=== PATIENT | female | born 1965 | race Hispanic/Latino ===

== ENCOUNTER 2019-02-14 13:56 | Inpatient (IN) | payer MEDICARE, OTHER ==
[2019-02-14] MEDS ORDERED: NACL 0.9% 1000 ML 1,000 ML IV ONE ×2 (14:02→16:14)
[2019-02-14] MEDS ORDERED: ZOFRAN IV ONE ×2 (14:02→16:36)
[2019-02-14] MEDS ORDERED: MORPHINE IV ONE ×2 (14:02→16:14)
--- NOTE | 2019-02-14 14:04 | Emergency Department Report ---
Blank Doc - Documentation Documentation: 53-year-old female that presents with abdominal pain and n/v. This initial assessment/diagnostic orders/clinical plan/treatment(s) is/are subject to change based on patient's health status, clinical progression and re- assessment by fellow clinical providers in the ED. Further treatment and workup at subsequent clinical providers discretion. Patient/guardians urged not to elope from the ED as their condition may be serious if not clinically assessed and managed. Initial orders include: 1- Patient sent to [facility] for further evaluation and treatment 2- labs 3- UA 4- fluids/treatment 5- CT abd/plevis
--- NOTE | 2019-02-14 15:00 | Emergency Department Report ---
HPI <JAZMÍN NOVOA - Last Filed: 02/15/19 01:58> - HPI HPI: 53-year-old female presents to the emergency department with complaint of some abdominal cramping pain, nausea, vomiting and shaking for the past 3-4 days. She has not taken anything for her symptoms secondary to the nausea and vomiting. She has a past medical history of arthritis, diabetes. She has a previous history of appendectomy and cholecystectomy. She went to return here yesterday and was told to come to the emergency department if she did not improve. No recent travel or sick contacts at home. <ALEX CENTENO - Last Filed: 02/15/19 22:00> - General Chief Complaint: Abdominal Pain Time Seen by Provider: 02/14/19 14:01 ED Past Medical Hx <JAZMÍN NOVOA - Last Filed: 02/15/19 01:58> - Past Medical History Previous Medical History?: Yes Hx Hypertension: Yes Hx Congestive Heart Failure: No Hx Diabetes: Yes (2YRS) Hx GERD: Yes Hx Arthritis: Yes Hx Headaches / Migraines: Yes Hx Asthma: No Hx COPD: No Hx HIV: No - Surgical History Hx Cholecystectomy: Yes Hx Appendectomy: Yes Additional Surgical History: back surg, bilat knee surg, hysterectomy, exp. lap - Social History Smoking Status: Current Every Day Smoker <ALEX CENTENO - Last Filed: 02/15/19 22:00> - Medications Home Medications: Home Medications Medication Instructions Recorded Confirmed Last Taken Type ALPRAZolam [Xanax TAB] 2 mg PO QID 01/15/13 02/14/19 02/13/19 History Aspirin [Aspirin BABY CHEW TAB] 81 mg PO QDAY 01/15/13 02/14/19 02/13/19 History Baclofen 10 mg PO QID 01/15/13 02/14/19 02/13/19 History Citalopram Hydrobromide [celeXA] 40 mg PO DAILY 01/15/13 02/14/19 02/13/19 History Dexlansoprazole [Dexilant] 60 mg PO QDAY 01/15/13 02/14/19 02/13/19 History Furosemide [Lasix TAB] 40 mg PO BID 01/15/13 02/14/19 02/13/19 History Trazodone HCl [Trazodone] 150 mg PO QHS 01/15/13 02/14/19 02/13/19 History busPIRone [Buspar] 15 mg PO TID 01/15/13 02/14/19 02/13/19 History Glimepiride 2 mg PO BID 09/20/13 02/14/19 02/13/19 History Multivitamin [Multi-Vitamin Daily] 1 tab PO DAILY 09/20/13 02/14/19 02/13/19 History Potassium Chloride 20 meq PO BID 09/20/13 02/14/19 02/13/19 History Sennosides/Docusate Sodium [Stool 2 cap PO BID 09/20/13 02/14/19 02/13/19 History Softener-Stim Lax Tablet] Cyanocobalamin (Vitamin B-12) 500 mcg SL QDAY 01/21/15 02/14/19 02/13/19 History [Vitamin B-12] Loratadine [Claritin] 10 mg PO BID 01/21/15 02/14/19 02/13/19 History Lovastatin [Altoprev] 40 mg PO QDAY 01/21/15 02/14/19 02/13/19 History Meloxicam [Mobic] 15 mg PO QDAY 01/21/15 02/14/19 02/13/19 History Oxycodone HCl/Acetaminophen 1 each PO TID PRN 01/21/15 02/14/19 02/13/19 History [Endocet 2.5-325 mg Tablet] fentaNYL [Fentanyl] 1 each TD Q72HR 01/21/15 02/14/19 02/13/19 History ED Review of Systems ROS: Stated complaint: VOMITING Other details as noted in HPI <JAZMÍN NOVOA - Last Filed: 02/15/19 01:58> ROS: Stated complaint: VOMITING Other details as noted in HPI Comment: All other systems reviewed and negative Constitutional: denies: chills, fever ENT: denies: ear pain, throat pain Respiratory: denies: cough, shortness of breath Cardiovascular: denies: chest pain, palpitations Gastrointestinal: abdominal pain, nausea, vomiting Genitourinary: denies: dysuria, discharge Musculoskeletal: denies: back pain, arthralgia Skin: denies: rash, lesions Neurological: denies: headache, weakness <SHEAR,ALEX S - Last Filed: 02/15/19 22:00> Physical Exam - Physical Exam Vital Signs: Vital Signs 02/14/19 14:03 Temperature 98.6 F Pulse Rate 99 H Respiratory 18 Rate Blood Pressure 127/76 O2 Sat by Pulse 94 Oximetry <JAZMÍN NOVOA - Last Filed: 02/15/19 01:58> - Physical Exam Vital Signs: Vital Signs 02/14/19 14:03 Temperature 98.6 F Pulse Rate 99 H Respiratory 18 Rate Blood Pressure 127/76 O2 Sat by Pulse 94 Oximetry Physical Exam: GENERAL: The patient is well-developed well-nourished. HENT: Normocephalic. Atraumatic. Patient has moist mucous membranes. EYES: Extraocular motions are intact. NECK: Supple. Trachea is midline. CHEST/LUNGS: Clear to auscultation. There is no respiratory distress noted. HEART/CARDIOVASCULAR: Regular. There is no tachycardia. There is no murmur. ABDOMEN: Abdomen is soft. Mild generalized tenderness to palpation of the abdomen. No guarding. Patient has normal bowel sounds. Obese habitus. SKIN: Skin is warm and dry. NEURO: The patient is awake, alert, and oriented. The patient is cooperative. The patient has no focal neurologic deficits. Normal speech. MUSCULOSKELETAL: There is no tenderness or deformity. There is no evidence of a cute injury. <ALEX CENTENO - Last Filed: 02/15/19 22:00> ED Course Vital Signs 02/14/19 14:03 Temperature 98.6 F Pulse Rate 99 H Respiratory 18 Rate Blood Pressure 127/76 O2 Sat by Pulse 94 Oximetry - Consultations Consultation #1: 02/14/19 21:36 Spoke w/ Dr Devlin. He is aware of patient. States obtain abdominal series in the AM. Will admit to hospitalist. <JAZMÍN NOVOA - Last Filed: 02/15/19 01:58> Vital Signs 02/14/19 14:03 Temperature 98.6 F Pulse Rate 99 H Respiratory 18 Rate Blood Pressure 127/76 O2 Sat by Pulse 94 Oximetry <ALEX CENTENO - Last Filed: 02/15/19 22:00> ED Medical Decision Making - Lab Data Result diagrams: 02/14/19 Unknown 02/14/19 19:00 - Radiology Data Radiology results: report reviewed, image reviewed - Medical Decision Making Patient received in signout from Dr. Centeno. Patient reports three-day history of diffuse abdominal pain, nausea, vomiting, constipation. CT scan shows small bowel obstruction, with transition point in the right lower quadrant. Patient reports history of multiple abdominal surgeries, including cholecystectomy, appendectomy, hysterectomy, and spinal surgery in which they approached through her abdomen. NG tube placed. Spoke with surgeon on-call, Dr Devlin, he is a steele the patient. Will admit to hospitalist, Dr Meyer, for further management. - Differential Diagnosis gastritis, bowel obstruction, diverticulitis, gastroparesis <JAZMÍN NOVOA. - Last Filed: 02/15/19 01:58> - Lab Data Result diagrams: 02/15/19 14:37 02/14/19 19:00 - Radiology Data Radiology results: report reviewed CT of the abdomen and pelvis with contrast INDICATION: Abdominal pain with nausea and vomiting COMPARISON: 01/02/2013 FINDINGS: Lung bases are clear. There is slight fatty infiltration of the liver. Gallbladder has been removed. No biliary tree dilation. The spleen, pancreas, adrenal glands and kidneys show no significant abnormalities with multiple renal low densities probably cysts. No fluid or adenopathy in the upper abdomen. There are moderately dilated jejunal loops in the left upper quadrant. CT of the pelvis shows evidence of hysterectomy. There is minimal free pelvic fluid. Transition zone is present in the right lower quadrant with the more distal small bowel loops collapsed although some gas and stool remains in the colon. There is no hernia or soft tissue mass in this area so the obstruction is likely due to postoperative adhesions. No diverticulosis or diverticulitis. No pelvic or inguinal adenopat hy. Bowel loops show no wall edema with again only minimal pelvic fluid. Postoperative changes of the lumbar spine and pelvis are seen. IMPRESSION: Mid to distal mechanical small bowel obstruction of mild to moderate severity. Likely etiology is adhesions. Automated exposure control was utilized to diminish radiation dose. Signer Name: Chadd Dunn MD Signed: 02/14/2019 8:32 PM Workstation Name: [id number] - Medical Decision Making This patient presents with a few days of nausea, vomiting and abdominal pain. Vital signs stable throughout her ED course thus far. I am still waiting for a urine sample for a urinalysis to be completed but the rest of her blood work has been unremarkable including a CBC and metabolic panel. The patient has been given some IV fluid resuscitation, antibiotics and pain medication. She will have a CT scan of the abdomen and pelvis with IV contrast to look for any other possible etiology of her symptoms. This patient will be signed out to my incoming colleague, Dr. Novoa, to follow the imaging results and assist with further disposition. Reviewing the rest of this chart, the CT scan results showed a small bowel obstruction and the patient was ultimately admitted with a Gen. surgery consult. <ALEX CENTENO - Last Filed: 02/15/19 22:00> Critical care attestation.: If time is entered above; I have spent that time in minutes in the direct care of this critically ill patient, excluding procedure time. <JAZMÍN NOVOA - Last Filed: 02/15/19 01:58> Critical Care Time: No Critical care attestation.: If time is entered above; I have spent that time in minutes in the direct care of this critically ill patient, excluding procedure time. <ALEX CENTENO - Last Filed: 02/15/19 22:00> ED Disposition Is pt being admited?: Yes Time of Disposition: 20:56 <JAZMÍN NOVOA - Last Filed: 02/15/19 01:58> Is pt being admited?: Yes <ALEX CENTENO - Last Filed: 02/15/19 22:00> Clinical Impression: Small bowel obstruction, Intractable abdominal pain Disposition: OP ADMIT IP TO THIS HOSP Condition: Fair
[2019-02-14 15:45] LABS: Basophils % (Auto) 0.7 % (0.0-1.8); Eosinophils % (Auto) 0.2 % (0.0-4.3); Hematocrit 42.2 % (30.3-42.9); Hemoglobin 14.2 gm/dl (10.1-14.3); Lymphocytes # (Auto) 1.3 K/mm3 (1.2-5.4); Lymphocytes % (Auto) 20.3 % (13.4-35.0); Mean Corpuscular HGB Conc 34 % (30-34); Mean Corpuscular Volume 95 fl (79-97); Monocytes # (Auto) 0.5 K/mm3 (0.0-0.8); Monocytes % (Auto) 7.6 % (0.0-7.3); Platelet Count 259 K/mm3 (140-440); Red Blood Count 4.46 M/mm3 (3.65-5.03); Red Cell Distribution Width 13.4 % (13.2-15.2)
[2019-02-14] MEDS ORDERED: ZOFRAN ONE ×2 (16:36→23:30)
[2019-02-14 17:33] LABS: Alanine Aminotransferase 23 units/L (7-56)
[2019-02-14 18:01] LABS: Albumin 3.6 g/dL (3.9-5); BUN/Creatinine Ratio 20; Blood Urea Nitrogen 16 mg/dL (7-17); Calcium 8.5 mg/dL (8.4-10.2); Hemolysis Index 262
--- NOTE | 2019-02-14 20:36 | Cat Scan Report ---
CT of the abdomen and pelvis with contrast INDICATION: Abdominal pain with nausea and vomiting COMPARISON: 01/02/2013 FINDINGS: Lung bases are clear. There is slight fatty infiltration of the liver. Gallbladder has been removed. No biliary tree dilation. The spleen, pancreas, adrenal glands and kidneys show no signific ant abnormalities with multiple renal low densities probably cysts. No fluid or adenopathy in the upp er abdomen. There are moderately dilated jejunal loops in the left upper quadrant. CT of the pelvis shows evidence of hysterectomy. There is minimal free pelvic fluid. Transition zone is present in the right lower quadrant with the more distal small bowel loops collapsed although some gas and stool remains in the colon. There is no hernia or soft tissue mass in this area so the obstr uction is likely due to postoperative adhesions. No diverticulosis or diverticulitis. No pelvic or in guinal adenopathy. Bowel loops show no wall edema with again only minimal pelvic fluid. Postoperative changes of the lumbar spine and pelvis are seen. IMPRESSION: Mid to distal mechanical small bowel obstruction of mild to moderate severity. Likely shekhar ology is adhesions. Automated exposure control was utilized to diminish radiation dose. Signer Name: Chadd Dunn MD Signed: 02/14/2019 8:32 PM Workstation Name: [id number]
[2019-02-14] MEDS ORDERED: DILAUDID IV ONE (20:45)
[2019-02-14 20:57] LABS: Bilirubin,Urine NEG (Negative); Blood,Urine NEG (Negative); Color,Urine Yellow (Yellow); Mucus,Urine FEW /HPF; Protein,Urine <15 mg/dL mg/dL (Negative)
[2019-02-14] MEDS ORDERED: REGLAN IV ONE (21:15)
[2019-02-14] MEDS ORDERED: REGLAN ONE (21:16)
[2019-02-14] MEDS ORDERED: TYLENOL PR PRN (22:54)
[2019-02-14] MEDS: ZOFRAN IV PRN (23:30)
[2019-02-14] MEDS ORDERED: MORPHINE ONE (23:30)
[2019-02-14] MEDS: MORPHINE IV PRN (23:30)
--- NOTE | 2019-02-15 00:11 | XRay Report ---
ABDOMEN 02/14/2019 INDICATION / CLINICAL INFORMATION: tube placement. COMPARISON: None available. FINDINGS: NG tube is positioned in the mid stomach, the tip is directed toward the gastric antrum. Small bowel gaseous distention is noted. Signer Name: Joshua Ybarra MD Signed: 02/15/2019 12:06 AM Workstation Name: [id number]
[2019-02-15] MEDS ORDERED: ATIVAN IV ONE (01:37)
[2019-02-15] MEDS: NACL 0.9% 1000 ML 1,000 ML IV SCH (01:56)
[2019-02-15] MEDS: MORPHINE IV PRN ×7 (02:34→22:13)
[2019-02-15] MEDS ORDERED: D50W (25GM) Syringe IV PRN (05:24)
--- NOTE | 2019-02-15 05:43 | History and Physical Report ---
CHIEF COMPLAINT: Abdominal pain. OTHER COMPLAINT: Include nausea and vomiting. HISTORY OF PRESENT ILLNESS: The patient is a 53-year-old female who has been having cramping abdominal pain going on for about 3-4 days. The patient said the pain is diffuse in the abdomen and associated with nausea and vomiting. There is no history of diarrhea; however, there is history of constipation going on for about 4-5 days. The patient denied history of fever and chills and denied history of shortness of breath and then presented to the Emergency Room. PAST MEDICAL HISTORY: Pertinent for hypertension, diabetes mellitus, gastroesophageal reflux disease, arthritis, migraine headache. PAST SURGICAL HISTORY: Pertinent for cholecystectomy, appendectomy, back surgery, hysterectomy, exploratory laparotomy, bilateral knee surgery. FAMILY HISTORY: Reviewed and noncontributory. SOCIAL HISTORY: The patient smokes cigarettes daily, does not drink alcohol and does not use illicit drugs. MEDICATIONS: The patient is on Xanax 2 mg by mouth 4 times daily, aspirin 81 mg by mouth daily, baclofen 10 mg by mouth 4 times daily, Celexa 40 mg by mouth daily, Dexilant or dexlansoprazole 60 mg daily. The patient is also on Lasix 40 mg by mouth twice daily, trazodone 150 mg at bedtime and buspirone 15 mg by mouth 3 times daily. Also, the patient is on glimepiride 2 mg by mouth daily, multivitamin 1 by mouth daily, potassium chloride 20 mEq by mouth twice daily and stool softener Stulax tablet 2 capsules by mouth twice daily. The patient is also on vitamin B12 500 mcg sublingual every day and loratadine 10 mg by mouth twice daily as well as lovastatin 40 mg by mouth daily. The patient is also on meloxicam 15 mg by mouth daily and Endocet 2.5/325 mg by mouth 3 times daily. The patient is on fentanyl patch 1 transdermally every 72 hours. ALLERGIES: The patient is allergic to PENICILLIN, BLACK COHOSH, DIPHENHYDRAMINE, HYDROCHLORIDE, GABAPENTIN. REVIEW OF SYSTEMS: CONSTITUTIONAL: There is no fever, no chills, no diaphoresis. HEENT: There is no headache or sore throat. CARDIOVASCULAR SYSTEM: There is no chest pain or orthopnea. RESPIRATORY SYSTEM: There is no shortness of breath or cough. GASTROINTESTINAL SYSTEM: Abdominal pain present. Nausea and vomiting present. Constipation present. No diarrhea. NEUROLOGICAL SYSTEM: There is no numbness, no dizziness, no altered mental status. MUSCULOSKELETAL SYSTEM: There is no joint pain or swelling. DERMATOLOGICAL SYSTEM: There is no skin rash or itching. GENITOURINARY SYSTEM: There is no dysuria, hematuria, or flank pain. Rest of system review is normal. PHYSICAL EXAMINATION: GENERAL: At the time of exam, the patient was found to be alert, oriented x 3 and not in acute distress. VITAL SIGNS: Shows temperature of 98.6 degrees Fahrenheit, pulse of 99, respirations 18, blood pressure 127/76, O2 sat of 94% on room air. HEENT: Showed pupils to be equal, round, reactive to light and accommodating. Extraocular muscles are intact. NECK: Supple with no JVD or carotid bruit. CARDIOVASCULAR SYSTEM: Showed normal first and second heart sounds with no gallops or murmurs. RESPIRATORY SYSTEM: Showed good air entry on both sides of the lungs with no abnormal breath sounds. GASTROINTESTINAL SYSTEM: Show abdomen to be full, soft with generalized tenderness with no guarding, no rigidity and no rebound tenderness. Bowel sound is normal. NEUROLOGICAL SYSTEM: Showed no focal deficit. MUSCULOSKELETAL SYSTEM: Show no joint swelling or tenderness. DERMATOLOGICAL SKIN: Showed no skin rash. GENITOURINARY SYSTEM: Showing no costovertebral angle tenderness. PERTINENT LABORATORY AND IMAGING STUDIES: The patient had acute abdominal series done that shows that NG tube is positioned in the mid stomach with the tip directed towards the gastric antrum. There is finding of small bowel gaseous distention and early around the patient had CT of the abdomen and pelvis with contrast done that showed mid to distal mechanical small-bowel obstruction of mild to moderate severity, likely due to adhesions according to the radiologist. Lab results, the patient had CBC done with normal white count, normal hemoglobin and normal hematocrit with CBC differential showing slightly elevated monocyte count of 71.2. The patient's chemistry was unremarkable. Urinalysis showed clear yellow urine with elevated urine specific gravity of 1.055 and trace urine ketones. DIAGNOSIS: Small-bowel obstruction. PLAN OF CARE: 1. The patient will be admitted to medical/surgical farrar. 2. The patient will continue intermittent low wall nasogastric suctioning started in the Emergency Room. 3. The patient will continue surgical consult with Dr. Higgins requested by the Emergency Room physician. 4. The patient will be on IV levofloxacin or Levaquin 750 mg daily for empiric treatment of small-bowel obstruction and also the patient will be on IV metronidazole 500 mg q. 8 hours for empirical treatment as the patient with small-bowel obstruction. 5. The patient will be on IV morphine 2 mg every 3 hours as needed for pain and IV Zofran 4 mg every 8 hours as needed for nausea and vomiting. 6. The patient will be on IV normal saline running at 125 mL an hour. 7. The patient will be on Tylenol 650 mg rectally every 4 hours as needed for fever and headache. 8. The patient will remain n.p.o. until nasogastric suctioning is discontinued and the patient reviewed by the surgeon. 9. The patient will be on Accu-Chek q.4 hours followed by low-dose sliding scale using regular insulin coverage. JOB# [id number] OCN/NTS
[2019-02-15] MEDS ORDERED: FLAGYL/NS 1000 MG-200 ML 1,000 MG in VIAFLEX EMPTY CONTAINER 0 ML IV SCH (06:00)
[2019-02-15] MEDS: HumuLIN R SUB-Q SCH ×4 (07:58→18:49)
[2019-02-15] MEDS: ZOFRAN IV PRN ×2 (09:24→15:17)
[2019-02-15] MEDS ORDERED: LEVAQUIN 750MG/150ML 750 MG/150 ML BAG IV SCH (10:00)
--- NOTE | 2019-02-15 10:44 | Progress Note ---
Assessment and Plan Assessment and plan: 53-year-old woman who presents to the hospital with abdominal pain distention nausea and vomiting. Has history of section over 20 years ago. Small bowel obstruction Continue NG tube to suction, general surgery input appreciated Nursing staff reported that she had the appearance of possible blood in the NG tube earlier today. Upon my exam it was dark bilious. Ordered stat CBC, PPI and GI consult Anxiety disorder Unable to take oral meds due to SBO, Ativan IV as needed DVT prophylaxis chemical History Interval history: Complaining of feeling anxious. Review of systems Constitutional: No fevers, no malaise, no joint pains CVS: No chest pain, no orthopnea, no pedal edema GI: Complaining of abdominal pain distention and nausea, but feels better Respiratory: No shortness of breath, no wheezing, no coughing Hospitalist Physical - Physical exam Narrative exam: General.: Mild distress HEENT: Moist mucous membranes, extraocular muscles intact, no lymphadenopathy Neck: supple Cardiac: S1-S2 heard Lungs: clear to auscultation bilaterally Abdomen: soft , distended, Extremities: no edema clubbing or cyanosis Skin: no rash or lesions Neurologic: no gross focal deficits Psych: calm, and cooperative, patient is anxious - Constitutional Vitals: Temp Pulse Resp BP Pulse Ox 98.3 F 70 20 139/70 97 02/15/19 05:40 02/15/19 05:40 02/15/19 05:53 02/15/19 05:40 02/15/19 05:40 Results - Labs CBC & Chem 7: 02/16/19 06:58 02/14/19 19:00 Labs: Laboratory Last Values WBC 6.6 K/mm3 (4.5-11.0) 02/14/19 Unknown RBC 4.46 M/mm3 (3.65-5.03) 02/14/19 Unknown Hgb 14.2 gm/dl (10.1-14.3) 02/14/19 Unknown Hct 42.2 % (30.3-42.9) 02/14/19 Unknown MCV 95 fl (79-97) 02/14/19 Unknown MCH 32 pg (28-32) 02/14/19 Unknown MCHC 34 % (30-34) 02/14/19 Unknown RDW 13.4 % (13.2-15.2) 02/14/19 Unknown Plt Count 259 K/mm3 (140-440) 02/14/19 Unknown Lymph % (Auto) 20.3 % (13.4-35.0) 02/14/19 Unknown [place] % (Auto) 7.6 % (0.0-7.3) H 02/14/19 Unknown Eos % (Auto) 0.2 % (0.0-4.3) 02/14/19 Unknown Baso % (Auto) 0.7 % (0.0-1.8) 02/14/19 Unknown Lymph # 1.3 K/mm3 (1.2-5.4) 02/14/19 Unknown [place] # 0.5 K/mm3 (0.0-0.8) 02/14/19 Unknown Eos # 0.0 K/mm3 (0.0-0.4) 02/14/19 Unknown Baso # 0.0 K/mm3 (0.0-0.1) 02/14/19 Unknown Seg Neutrophils % 71.2 % (40.0-70.0) H 02/14/19 Unknown Seg Neutrophils # 4.7 K/mm3 (1.8-7.7) 02/14/19 Unknown Sodium 140 mmol/L (137-145) 02/14/19 16:15 Potassium 4.5 mmol/L (3.6-5.0) 02/14/19 19:00 Chloride 99.8 mmol/L (98-107) 02/14/19 16:15 Carbon Dioxide 25 mmol/L (22-30) 02/14/19 16:15 Anion Gap 21 mmol/L 02/14/19 16:15 BUN 16 mg/dL (7-17) 02/14/19 16:15 Creatinine 0.8 mg/dL (0.7-1.2) 02/14/19 16:15 Estimated GFR > 60 ml/min 02/14/19 16:15 BUN/Creatinine Ratio 20 % 02/14/19 16:15 Glucose 147 mg/dL (65-100) H 02/14/19 16:15 POC Glucose 88 (70-105) 02/15/19 06:35 Calcium 8.5 mg/dL (8.4-10.2) 02/14/19 16:15 Total Bilirubin 0.70 mg/dL (0.1-1.2) 02/14/19 16:15 AST 29 units/L (5-40) 02/14/19 16:15 ALT 23 units/L (7-56) 02/14/19 16:15 Alkaline Phosphatase 95 units/L (35-129) 02/14/19 16:15 Total Protein 6.4 g/dL (6.3-8.2) 02/14/19 16:15 Albumin 3.6 g/dL (3.9-5) L 02/14/19 16:15 Albumin/Globulin Ratio 1.3 % 02/14/19 16:15 Lipase 13 units/L (13-60) 02/14/19 16:15 Urine Color Yellow (Yellow) 02/14/19 Unknown Urine Turbidity Clear (Clear) 02/14/19 Unknown Urine pH 5.0 (5.0-7.0) 02/14/19 Unknown Ur Specific Art 1.055 (1.003-1.030) H 02/14/19 Unknown Urine Protein <15 mg/dl mg/dL (Negative) 02/14/19 Unknown Urine Glucose (UA) Neg mg/dL (Negative) 02/14/19 Unknown Urine Ketones Tr mg/dL (Negative) 02/14/19 Unknown Urine Blood Neg (Negative) 02/14/19 Unknown Urine Nitrite Neg (Negative) 02/14/19 Unknown Urine Bilirubin Neg (Negative) 02/14/19 Unknown Urine Urobilinogen 2.0 mg/dL (<2.0) 02/14/19 Unknown Ur Leukocyte Esterase Neg (Negative) 02/14/19 Unknown Urine WBC (Auto) 1.0 /HPF (0.0-6.0) 02/14/19 Unknown Urine RBC (Auto) 1.0 /HPF (0.0-6.0) 02/14/19 Unknown Urine Mucus Few /HPF 02/14/19 Unknown Active Medications - Current Medications Current Medications: Generic Name Dose Route Start Last Admin Trade Name Freq PRN Reason Stop Dose Admin Acetaminophen 650 mg 02/14/19 22:54 Tylenol DC Q4H PRN Fever >101 Dextrose 50 ml 02/15/19 05:24 D50w (25gm) Syringe IV PRN PRN Hypoglycemia Sodium Chloride 1,000 mls @ 125 mls/hr 02/14/19 23:00 02/15/19 01:56 Nacl 0.9% 1000 Ml IV 125 mls/hr DIRECT JUAN Administration Levofloxacin/Dextrose 750 mg in 150 mls @ 100 mls/hr 02/15/19 10:00 02/15/19 09:22 Levaquin 750mg/150ml IV 100 mls/hr Q24HR JUAN Administration Protocol Metronidazole 1,000 mg/ 200 mls @ 200 mls/hr 02/15/19 06:00 02/15/19 05:52 Miscellaneous Information IV 200 mls/hr Q8HR JUAN Administration Protocol Insulin Human Regular 0 units 02/15/19 06:00 02/15/19 07:58 Humulin R SUB-Q Not Given Q4HR [facility] Protocol Morphine Sulfate 2 mg 02/14/19 22:53 02/15/19 09:22 Morphine IV 2 mg Q3H PRN Administration Pain, Moderate (4-6) Ondansetron HCl 4 mg 02/14/19 22:53 02/15/19 09:24 Zofran IV 4 mg Q8H PRN Administration Nausea And Vomiting
[2019-02-15] MEDS ORDERED: AFLURIA QUAD 2019-2020 (3YR UP) IM ONE (12:00)
--- NOTE | 2019-02-15 13:33 | Progress Note ---
Assessment and Plan Full consult dictated. 53 y/o chronic pain, anxiety pt admitted secondary to partial sbo on CT Abd soft at present (pt states "much better than on admission:") CT - consistent with partial sbo imp partial sbo recommend: NPO NG suction IVF hydration mineral oil per ng q 4h monitor clinically repeat abd series in am will follow - HPI HPI: 53-year-old female presents to the emergency department with complaint of some abdominal cramping pain, nausea, vomiting and shaking for the past 3-4 days. She has not taken anything for her symptoms secondary to the nausea and vomiting. She has a past medical history of arthritis, diabetes. She has a previous history of appendectomy and cholecystectomy. She went to return here yesterday and was told to come to the emergency department if she did not improve. No recent travel or sick contacts at home. <ALEX DOYLE - Last Filed: 02/14/19 18:05> <JAZMÍN NOVOA - Last Filed: 02/15/19 02:01> - General Chief Complaint: Abdominal Pain Time Seen by Provider: 02/14/19 14:01 ED Past Medical Hx - Past Medical History Previous Medical History?: Yes Hx Hypertension: Yes Hx Congestive Heart Failure: No Hx Diabetes: Yes (2YRS) Hx GERD: Yes Hx Arthritis: Yes Hx Headaches / Migraines: Yes Hx Asthma: No Hx COPD: No Hx HIV: No Selected Entries 02/15/19 12:00 Temperature 97.2 F L Pulse Rate 82 Respiratory 18 Rate Blood Pressure 144/70 Laboratory Tests 02/14/19 Unknown WBC 6.6 Hgb 14.2 Hct 42.2 Objective Vital Signs - 12hr 02/15/19 02/15/19 02/15/19 02:34 05:40 05:53 Temperature 98.3 F Pulse Rate 70 Respiratory 20 20 20 Rate Blood Pressure 139/70 O2 Sat by Pulse 97 Oximetry 02/15/19 12:00 Temperature 97.2 F L Pulse Rate 82 Respiratory 18 Rate Blood Pressure 144/70 O2 Sat by Pulse 93 Oximetry - Labs 02/14/19 Unknown 02/14/19 19:00 Diabetes panel 02/14/19 02/14/19 Range/Units 16:15 19:00 Sodium 140 (137-145) mmol/L Potassium 5.4 H 4.5 (3.6-5.0) mmol/L Chloride 99.8 (98-107) mmol/L Carbon Dioxide 25 (22-30) mmol/L BUN 16 (7-17) mg/dL Creatinine 0.8 (0.7-1.2) mg/dL Glucose 147 H (65-100) mg/dL Calcium 8.5 (8.4-10.2) mg/dL AST 29 (5-40) units/L ALT 23 (7-56) units/L Alkaline Phosphatase 95 (35-129) units/L Total Protein 6.4 (6.3-8.2) g/dL Albumin 3.6 L (3.9-5) g/dL Calcium panel 02/14/19 Range/Units 16:15 Calcium 8.5 (8.4-10.2) mg/dL Albumin 3.6 L (3.9-5) g/dL Pituitary panel 02/14/19 02/14/19 Range/Units 16:15 19:00 Sodium 140 (137-145) mmol/L Potassium 5.4 H 4.5 (3.6-5.0) mmol/L Chloride 99.8 (98-107) mmol/L Carbon Dioxide 25 (22-30) mmol/L BUN 16 (7-17) mg/dL Creatinine 0.8 (0.7-1.2) mg/dL Glucose 147 H (65-100) mg/dL Calcium 8.5 (8.4-10.2) mg/dL Adrenal panel 02/14/19 02/14/19 Range/Units 16:15 19:00 Sodium 140 (137-145) mmol/L Potassium 5.4 H 4.5 (3.6-5.0) mmol/L Chloride 99.8 (98-107) mmol/L Carbon Dioxide 25 (22-30) mmol/L BUN 16 (7-17) mg/dL Creatinine 0.8 (0.7-1.2) mg/dL Glucose 147 H (65-100) mg/dL Calcium 8.5 (8.4-10.2) mg/dL Total Bilirubin 0.70 (0.1-1.2) mg/dL AST 29 (5-40) units/L ALT 23 (7-56) units/L Alkaline Phosphatase 95 (35-129) units/L Total Protein 6.4 (6.3-8.2) g/dL Albumin 3.6 L (3.9-5) g/dL
[2019-02-15] MEDS ORDERED: MINERAL OIL PO ONE (13:39)
[2019-02-15] MEDS ORDERED: FENTANYL TD SCH (14:30)
[2019-02-15] MEDS: ATIVAN IV PRN ×2 (14:41→22:13)
[2019-02-15 14:45] LABS: Basophils % (Auto) 0.3 % (0.0-1.8); Eosinophils % (Auto) 0.1 % (0.0-4.3); Hematocrit 39.5 % (30.3-42.9); Hemoglobin 13.6 gm/dl (10.1-14.3); Lymphocytes # (Auto) 1.1 K/mm3 (1.2-5.4); Lymphocytes % (Auto) 17.3 % (13.4-35.0); Mean Corpuscular HGB Conc 34 % (30-34); Mean Corpuscular Volume 94 fl (79-97); Monocytes # (Auto) 0.5 K/mm3 (0.0-0.8); Monocytes % (Auto) 7.2 % (0.0-7.3); Platelet Count 223 K/mm3 (140-440); Red Blood Count 4.19 M/mm3 (3.65-5.03); Red Cell Distribution Width 13.4 % (13.2-15.2)
[2019-02-15] MEDS ORDERED: PROTONIX 80 MG in NACL 0.9% 100 ML IV SCH (15:00)
--- NOTE | 2019-02-15 16:24 | Gastroenterology Consultation ---
History of Present Illness - Reason for Consult Consult date: 02/15/19 blood in NGT Requesting physician: GRACE ERWIN - History of Present Illness Patient is a 53 y/o female with PMH of HTN, DM, GERD, arthritis, and CHAUHAN/migraines who presented to ED with c/o abd pain with N/V and was admitted with partial small bowel obstruction. Surgery following. GI has been consulted due to blood in NGT for evaluation of GI bleed. This afternoon patient was resting in bed w/o acute distress and family at bedside. Takes daily ASA and Dexilant for GERD at home. No hx of PUD, liver disease, or prior GI bleeding. Upon exam, NGT with moderate amount of dark greenish bilious drainage (no bright red blood). Denies melena or hematochezia. Last EGD over 5 years ago by provider at [facility] (Dr. Smith) with no significant findings per pt report. Multiple prior abdominal surgeries. Past History Past Medical History: other (see HPI) Past Surgical History: appendectomy, cholecystectomy, Other (back surg, bilat knee surg, hysterectomy, exp. lap) Social history: smoking. denies: alcohol abuse Medications and Allergies Allergies Allergy/AdvReac Type Severity Reaction Status Date / Time Penicillins Allergy Severe ANIPHYLACTIC Verified 01/15/13 11:20 SHOCK black cohosh [Black Cohosh] Allergy Unknown Verified 09/19/13 01:52 diphenhydramine HCl AdvReac Severe INTERACTS Verified 01/15/13 11:20 [From Benadryl] WITH OTHER MEDS, CRAZY gabapentin [From Neurontin] AdvReac Severe CRAZY Verified 01/15/13 11:20 ketorolac tromethamine AdvReac Severe VOMITTING Verified 01/15/13 11:20 [From Toradol] pregabalin [From Lyrica] AdvReac Severe CRAZY Verified 01/15/13 11:20 venom-honey bee AdvReac Anaphylaxis Verified 01/15/13 11:21 COCONUT AdvReac Severe Itching Uncoded 01/15/13 11:20 Home Medications Medication Instructions Recorded Confirmed Last Taken Type ALPRAZolam [Xanax TAB] 2 mg PO QID 01/15/13 02/14/19 02/13/19 History Aspirin [Aspirin BABY CHEW TAB] 81 mg PO QDAY 01/15/13 02/14/19 02/13/19 History Baclofen 10 mg PO QID 01/15/13 02/14/19 02/13/19 History Citalopram Hydrobromide [celeXA] 40 mg PO DAILY 01/15/13 02/14/19 02/13/19 History Dexlansoprazole [Dexilant] 60 mg PO QDAY 01/15/13 02/14/19 02/13/19 History Furosemide [Lasix TAB] 40 mg PO BID 01/15/13 02/14/19 02/13/19 History Trazodone HCl [Trazodone] 150 mg PO QHS 01/15/13 02/14/19 02/13/19 History busPIRone [Buspar] 15 mg PO TID 01/15/13 02/14/19 02/13/19 History Glimepiride 2 mg PO BID 09/20/13 02/14/19 02/13/19 History Multivitamin [Multi-Vitamin Daily] 1 tab PO DAILY 09/20/13 02/14/19 02/13/19 History Potassium Chloride 20 meq PO BID 09/20/13 02/14/19 02/13/19 History Sennosides/Docusate Sodium [Stool 2 cap PO BID 09/20/13 02/14/19 02/13/19 History Softener-Stim Lax Tablet] Cyanocobalamin (Vitamin B-12) 500 mcg SL QDAY 01/21/15 02/14/19 02/13/19 History [Vitamin B-12] Loratadine [Claritin] 10 mg PO BID 01/21/15 02/14/19 02/13/19 History Lovastatin [Altoprev] 40 mg PO QDAY 01/21/15 02/14/19 02/13/19 History Meloxicam [Mobic] 15 mg PO QDAY 01/21/15 02/14/19 02/13/19 History Oxycodone HCl/Acetaminophen 1 each PO TID PRN 01/21/15 02/14/19 02/13/19 History [Endocet 2.5-325 mg Tablet] fentaNYL [Fentanyl] 1 each TD Q72HR 01/21/15 02/14/19 02/13/19 History Active Meds: Active Medications Acetaminophen (Tylenol) 650 mg NE Q4H PRN PRN Reason: Fever >101 Dextrose (D50w (25gm) Syringe) 50 ml IV PRN PRN PRN Reason: Hypoglycemia Sodium Chloride (Nacl 0.9% 1000 Ml) 1,000 mls @ 125 mls/hr IV DIRECT JUAN Last Admin: 02/15/19 01:56 Dose: 125 mls/hr Documented by: Pantoprazole Sodium 80 mg/ (Sodium Chloride) 100 mls @ 10 mls/hr IV DIRECT JUAN Insulin Human Regular (Humulin R) 0 units SUB-Q Q4HR JUAN; Protocol Last Admin: 02/15/19 13:32 Dose: 1 units Documented by: Lorazepam (Ativan) 1 mg IV Q4H PRN PRN Reason: Anxiety Last Admin: 02/15/19 14:41 Dose: 1 mg Documented by: Miscellaneous Medication (Fentanyl [Fentanyl]) 1 each TD Q72HR JUAN Morphine Sulfate (Morphine) 2 mg IV Q3H PRN PRN Reason: Pain, Moderate (4-6) Last Admin: 02/15/19 15:18 Dose: 2 mg Documented by: Ondansetron HCl (Zofran) 4 mg IV Q8H PRN PRN Reason: Nausea And Vomiting Last Admin: 02/15/19 15:17 Dose: 4 mg Documented by: medications reviewed/updated as required Review of Systems - Review of Systems All systems: negative Gastrointestinal: abdominal pain, nausea, vomiting, no hematemesis, no melena, no hematochezia Exam - Constitutional Vital Signs: Temp Pulse Resp BP Pulse Ox 97.2 F L 82 18 144/70 93 02/15/19 12:00 02/15/19 12:00 02/15/19 12:00 02/15/19 12:00 02/15/19 12:00 General appearance: no acute distress - EENT Eyes: PERRL, EOM intact ENT: hearing intact, other (+NGT with dark bilious drainage) - Respiratory Respiratory effort: normal Respiratory: bilateral: CTA - Cardiovascular Rhythm: regular - Gastrointestinal General gastrointestinal: Present: soft, tender (slight TTP), distended (slightly ), hypoactive bowel sounds - Neurologic Neurological: alert and oriented x3 - Labs CBC & Chem 7: 02/15/19 14:37 02/14/19 19:00 Lab Results: Laboratory Results - last 24 hr 02/14/19 02/14/19 02/14/19 16:15 19:00 Unknown WBC RBC Hgb Hct MCV MCH MCHC RDW Plt Count Lymph % (Auto) [place] % (Auto) Eos % (Auto) Baso % (Auto) Lymph # [place] # Eos # Baso # Seg Neutrophils % Seg Neutrophils # Sodium 140 Potassium 5.4 H 4.5 Chloride 99.8 Carbon Dioxide 25 Anion Gap 21 BUN 16 Creatinine 0.8 Estimated GFR > 60 BUN/Creatinine Ratio 20 Glucose 147 H POC Glucose Calcium 8.5 Total Bilirubin 0.70 AST 29 ALT 23 Alkaline Phosphatase 95 Total Protein 6.4 Albumin 3.6 L Albumin/Globulin Ratio 1.3 Lipase 13 Urine Color Yellow Urine Turbidity Clear Urine pH 5.0 Ur Specific [place] 1.055 H Urine Protein <15 mg/dl Urine Glucose (UA) Neg Urine Ketones Tr Urine Blood Neg Urine Nitrite Neg Urine Bilirubin Neg Urine Urobilinogen 2.0 Ur Leukocyte Esterase Neg Urine WBC (Auto) 1.0 Urine RBC (Auto) 1.0 Urine Mucus Few 02/15/19 02/15/19 02/15/19 06:35 11:36 14:37 WBC 6.6 RBC 4.19 Hgb 13.6 Hct 39.5 MCV 94 MCH 32 MCHC 34 RDW 13.4 Plt Count 223 Lymph % (Auto) 17.3 [place] % (Auto) 7.2 Eos % (Auto) 0.1 Baso % (Auto) 0.3 Lymph # 1.1 L [place] # 0.5 Eos # 0.0 Baso # 0.0 Seg Neutrophils % 75.1 H Seg Neutrophils # 4.9 Sodium Potassium Chloride Carbon Dioxide Anion Gap BUN Creatinine Estimated GFR BUN/Creatinine Ratio Glucose POC Glucose 88 155 H Calcium Total Bilirubin AST ALT Alkaline Phosphatase Total Protein Albumin Albumin/Globulin Ratio Lipase Urine Color Urine Turbidity Urine pH Ur Specific [place] Urine Protein Urine Glucose (UA) Urine Ketones Urine Blood Urine Nitrite Urine Bilirubin Urine Urobilinogen Ur Leukocyte Esterase Urine WBC (Auto) Urine RBC (Auto) Urine Mucus Assessment and Plan 1.blood in NGT/GI bleed? 2.partial SBO -afebrile -WBC WNL -H/H WNL (13.6/39.5)- continue to monitor/transfuse as needed -abd CT c/w pSBO -NGT with dark bilious drainage- No hematemesis, melena or hematochezia -no plan for EGD at this time given no clinical evidence of significant GI bleeding unless overt bleeding develops -continue PPI and supportive care -no further recommendations per GI standpoint at this time -will sign off and defer further management to surgery/primary team -please call back if needed
[2019-02-16] MEDS: HumuLIN R SUB-Q SCH ×7 (00:54→21:40)
[2019-02-16] MEDS: MORPHINE IV PRN ×4 (00:56→21:29)
--- NOTE | 2019-02-16 03:11 | Consultation ---
REASON FOR CONSULTATION: Partial small bowel obstruction. HISTORY OF PRESENT ILLNESS: The patient is a 53-year-old female who states she is a chronic pain patient and is also suffering from anxiety. Stated she was brought to the Emergency Room yesterday with a chief complaint of nausea, vomiting as well as a crampy abdominal pain. PAST MEDICAL HISTORY: As previously mentioned, a chronic pain patient, diabetes, anxiety, history of PVCs. PAST SURGICAL HISTORY: Status post " back surgeries. Also, an anterior fusion, SI joint surgery, spinal cord stimulator, hysterectomy and . ALLERGIES: PENICILLIN, TORADOL AND NEURONTIN. MEDICATIONS: Fentanyl patch, oxycodone and Xanax. FAMILY HISTORY: Negative. SOCIAL HISTORY: Smoked 2 packs a day for approximately 30 years, but states over the last year or so, she has cut back to 1/4 of a pack. Denies any ethanol intake. PHYSICAL EXAMINATION: GENERAL: At this time reveals the patient to be awake, alert, cooperative, in no acute distress. VITAL SIGNS: Show her to be afebrile with a temperature of 98.3, blood pressure is 144/70, pulse of 82, respirations of 18. ABDOMEN: NG tube is in place and some bilious drainage is noted in the canister. The abdomen itself currently is soft with minimal if any tenderness. The patient states that very distended before, but now looks much better. Bowel sounds are present, somewhat hypoactive. LABORATORY DATA: At present includes a CBC, which shows a white count of 6.6, H and H is 14 and 42. Electrolytes are essentially within normal limits including potassium of 4.5. Glucose is 147. LFTs are normal. Lipase is normal at 13. A CT scan was performed in the ER, which I have reviewed with the radiologist. IMPRESSION: Mid to distal partial mechanical obstruction of [id number] severity, likely secondary to adhesions. IMPRESSION: At this time is that of a 53-year-old female, rule out partial small bowel obstruction secondary to adhesions. RECOMMENDATIONS: At this time is to keep the patient n.p.o. Also, recommend NG suction and IV fluid hydration. We will begin mineral oil through NG tube q. 4 hours. We will monitor clinically with you. Also, we will order repeat abdominal series in the morning. JOB# [id number] /NTS
[2019-02-16] MEDS: NACL 0.9% 1000 ML 1,000 ML IV SCH ×2 (04:51→15:30)
[2019-02-16] MEDS: ATIVAN IV PRN ×4 (04:52→21:28)
[2019-02-16 07:35] LABS: Basophils % (Auto) 0.3 % (0.0-1.8); Eosinophils % (Auto) 0.1 % (0.0-4.3); Hematocrit 38.5 % (30.3-42.9); Hemoglobin 13.2 gm/dl (10.1-14.3); Lymphocytes # (Auto) 1.5 K/mm3 (1.2-5.4); Lymphocytes % (Auto) 17.9 % (13.4-35.0); Mean Corpuscular HGB Conc 34 % (30-34); Mean Corpuscular Volume 95 fl (79-97); Monocytes # (Auto) 0.6 K/mm3 (0.0-0.8); Monocytes % (Auto) 7.5 % (0.0-7.3); Platelet Count 221 K/mm3 (140-440); Red Blood Count 4.07 M/mm3 (3.65-5.03); Red Cell Distribution Width 13.2 % (13.2-15.2)
--- NOTE | 2019-02-16 09:29 | XRay Report ---
ABDOMINAL SERIES WITH CHEST X-RAY ONE VIEW HISTORY: Small bowel obstruction FINDINGS: Compared to 02/14/2019. The nasogastric tube remains in good position. Supine and upright v iews the abdomen demonstrate a normal bowel gas pattern on today's exam. Dilated small bowel loops bermudez ve resolved. No free air or significant fluid levels. Single view of the chest remains normal. IMPRESSION: Apparent resolution of the small bowel obstruction pattern after nasogastric tube placeme nt. Signer Name: Evangelist Coughlin Jr, MD Signed: 02/16/2019 9:25 AM Workstation Name: [id number]
--- NOTE | 2019-02-16 09:34 | Progress Note ---
Assessment and Plan HD # 1 Pt feeling better. I flatus Abd softer, non tender. hypoactive BS Abd series - much improved continue present care f/u abd series in am Selected Entries 02/15/19 02/16/19 22:23 04:59 Temperature 97.6 F Pulse Rate 95 H Respiratory 18 Rate Blood Pressure 133/61 Laboratory Tests 02/16/19 06:58 WBC 8.3 Hgb 13.2 Hct 38.5 Objective Vital Signs - 12hr 02/15/19 02/16/19 22:23 04:59 Temperature 98.9 F 97.6 F Pulse Rate 92 H 95 H Respiratory 18 24 Rate Blood Pressure 116/61 133/61 O2 Sat by Pulse 88 87 Oximetry - Labs 02/16/19 06:58 02/14/19 19:00
[2019-02-16] MEDS ORDERED: PEPCID IV SCH (10:00)
[2019-02-16] MEDS: PROTONIX IV SCH ×2 (10:05→21:30)
[2019-02-16] MEDS ORDERED: NACL 0.9% IR SCH (10:15)
[2019-02-16] MEDS: MINERAL OIL FEEDTUBE SCH ×5 (11:48→21:03)
[2019-02-16] MEDS ORDERED: DURAGESIC TD SCH (12:00)
[2019-02-16] MEDS: ZOFRAN IV PRN (13:27)
[2019-02-16] MEDS: NACL 0.9% IR SCH (13:33)
--- NOTE | 2019-02-16 13:34 | Progress Note ---
Assessment and Plan Assessment and plan: 53-year-old woman who presents to the hospital with abdominal pain distention nausea and vomiting. Has history of section over 20 years ago. Small bowel obstruction Continue NG tube to suction, general surgery input appreciated GI bleed ruled out, hemoglobin stable, she had dark bilious output from her NG tube, nursing staff and patient reassured Anxiety disorder Unable to take oral meds due to SBO, Ativan IV as needed DVT prophylaxis chemical History Interval history: Complaining of feeling anxious. Review of systems Constitutional: No fevers, no malaise, no joint pains CVS: No chest pain, no orthopnea, no pedal edema GI: Complaining of abdominal pain distention and nausea, but feels better Respiratory: No shortness of breath, no wheezing, no coughing Hospitalist Physical - Physical exam Narrative exam: General.: Mild distress HEENT: Moist mucous membranes, extraocular muscles intact, no lymphadenopathy Neck: supple Cardiac: S1-S2 heard Lungs: clear to auscultation bilaterally Abdomen: soft , distended, hypoactive bowel sounds Extremities: no edema clubbing or cyanosis Skin: no rash or lesions Neurologic: no gross focal deficits Psych: calm, and cooperative, patient is anxious - Constitutional Vitals: Temp Pulse Resp BP Pulse Ox 98.7 F 83 20 131/74 91 02/16/19 11:49 02/16/19 11:49 02/16/19 11:49 02/16/19 11:49 02/16/19 11:49 Results - Labs CBC & Chem 7: 02/16/19 06:58 02/14/19 19:00 Labs: Laboratory Last Values WBC 8.3 K/mm3 (4.5-11.0) 02/16/19 06:58 RBC 4.07 M/mm3 (3.65-5.03) 02/16/19 06:58 Hgb 13.2 gm/dl (10.1-14.3) 02/16/19 06:58 Hct 38.5 % (30.3-42.9) 02/16/19 06:58 MCV 95 fl (79-97) 02/16/19 06:58 MCH 32 pg (28-32) 02/16/19 06:58 MCHC 34 % (30-34) 02/16/19 06:58 RDW 13.2 % (13.2-15.2) 02/16/19 06:58 Plt Count 221 K/mm3 (140-440) 02/16/19 06:58 Lymph % (Auto) 17.9 % (13.4-35.0) 02/16/19 06:58 [place] % (Auto) 7.5 % (0.0-7.3) H 02/16/19 06:58 Eos % (Auto) 0.1 % (0.0-4.3) 02/16/19 06:58 Baso % (Auto) 0.3 % (0.0-1.8) 02/16/19 06:58 Lymph # 1.5 K/mm3 (1.2-5.4) 02/16/19 06:58 [place] # 0.6 K/mm3 (0.0-0.8) 02/16/19 06:58 Eos # 0.0 K/mm3 (0.0-0.4) 02/16/19 06:58 Baso # 0.0 K/mm3 (0.0-0.1) 02/16/19 06:58 Seg Neutrophils % 74.2 % (40.0-70.0) H 02/16/19 06:58 Seg Neutrophils # 6.1 K/mm3 (1.8-7.7) 02/16/19 06:58 Sodium 140 mmol/L (137-145) 02/14/19 16:15 Potassium 4.5 mmol/L (3.6-5.0) 02/14/19 19:00 Chloride 99.8 mmol/L (98-107) 02/14/19 16:15 Carbon Dioxide 25 mmol/L (22-30) 02/14/19 16:15 Anion Gap 21 mmol/L 02/14/19 16:15 BUN 16 mg/dL (7-17) 02/14/19 16:15 Creatinine 0.8 mg/dL (0.7-1.2) 02/14/19 16:15 Estimated GFR > 60 ml/min 02/14/19 16:15 BUN/Creatinine Ratio 20 % 02/14/19 16:15 Glucose 147 mg/dL (65-100) H 02/14/19 16:15 POC Glucose 150 (70-105) H 02/16/19 11:58 Calcium 8.5 mg/dL (8.4-10.2) 02/14/19 16:15 Total Bilirubin 0.70 mg/dL (0.1-1.2) 02/14/19 16:15 AST 29 units/L (5-40) 02/14/19 16:15 ALT 23 units/L (7-56) 02/14/19 16:15 Alkaline Phosphatase 95 units/L (35-129) 02/14/19 16:15 Total Protein 6.4 g/dL (6.3-8.2) 02/14/19 16:15 Albumin 3.6 g/dL (3.9-5) L 02/14/19 16:15 Albumin/Globulin Ratio 1.3 % 02/14/19 16:15 Lipase 13 units/L (13-60) 02/14/19 16:15 Urine Color Yellow (Yellow) 02/14/19 Unknown Urine Turbidity Clear (Clear) 02/14/19 Unknown Urine pH 5.0 (5.0-7.0) 02/14/19 Unknown Ur Specific [place] 1.055 (1.003-1.030) H 02/14/19 Unknown Urine Protein <15 mg/dl mg/dL (Negative) 02/14/19 Unknown Urine Glucose (UA) Neg mg/dL (Negative) 02/14/19 Unknown Urine Ketones Tr mg/dL (Negative) 02/14/19 Unknown Urine Blood Neg (Negative) 02/14/19 Unknown Urine Nitrite Neg (Negative) 02/14/19 Unknown Urine Bilirubin Neg (Negative) 02/14/19 Unknown Urine Urobilinogen 2.0 mg/dL (<2.0) 02/14/19 Unknown Ur Leukocyte Esterase Neg (Negative) 02/14/19 Unknown Urine WBC (Auto) 1.0 /HPF (0.0-6.0) 02/14/19 Unknown Urine RBC (Auto) 1.0 /HPF (0.0-6.0) 02/14/19 Unknown Urine Mucus Few /HPF 02/14/19 Unknown Active Medications - Current Medications Current Medications: Generic Name Dose Route Start Last Admin Trade Name Freq PRN Reason Stop Dose Admin Acetaminophen 650 mg 02/14/19 22:54 Tylenol AR Q4H PRN Fever >101 Dextrose 50 ml 02/15/19 05:24 D50w (25gm) Syringe IV PRN PRN Hypoglycemia Enoxaparin Sodium 40 mg 02/16/19 22:00 Lovenox SUB-Q QDAY@2200 JUAN Fentanyl 25 mcg 02/16/19 12:00 02/16/19 13:00 Duragesic TD 25 mcg Q72HR JUAN Administration Sodium Chloride 1,000 mls @ 125 mls/hr 02/14/19 23:00 02/16/19 04:51 Nacl 0.9% 1000 Ml IV 125 mls/hr DIRECT JUAN Administration Insulin Human Regular 0 units 02/15/19 06:00 02/16/19 10:45 Humulin R SUB-Q 1 units Q4HR JUAN Administration Protocol Lorazepam 1 mg 02/15/19 14:28 02/16/19 11:46 Ativan IV 1 mg Q4H PRN Administration Anxiety Mineral Oil 30 ml 02/16/19 10:30 02/16/19 11:48 Mineral Oil FEEDTUBE 30 ml Q4HR JUAN Administration Morphine Sulfate 2 mg 02/14/19 22:53 02/16/19 09:50 Morphine IV 2 mg Q3H PRN Administration Pain, Moderate (4-6) Ondansetron HCl 4 mg 02/14/19 22:53 02/16/19 13:27 Zofran IV 4 mg Q8H PRN Administration Nausea And Vomiting Pantoprazole Sodium 40 mg 02/16/19 10:00 02/16/19 10:05 Protonix IV 40 mg BID JUAN Administration Sodium Chloride 20 ml 02/16/19 14:00 Nacl 0.9% IR Q8HR JUAN
[2019-02-16] MEDS ORDERED: CEPACOL X STRENGTH MM PRN (15:24)
[2019-02-16] MEDS ORDERED: CHLORASEPTIC MM PRN (19:31)
[2019-02-16] MEDS: ENOXAPARIN SUB-Q SCH (21:30)
[2019-02-17] MEDS: NACL 0.9% 1000 ML 1,000 ML IV SCH ×5 (00:02→16:32)
[2019-02-17] MEDS: ZOFRAN IV PRN ×3 (00:02→19:01)
[2019-02-17] MEDS: HumuLIN R SUB-Q SCH ×5 (02:00→17:53)
[2019-02-17] MEDS: MINERAL OIL FEEDTUBE SCH ×6 (02:40→22:00)
[2019-02-17] MEDS: NACL 0.9% IR SCH ×3 (02:41→15:41)
[2019-02-17 05:38] LABS: Basophils # (Auto) 0.1 K/mm3 (0.0-0.1); Basophils % (Auto) 0.7 % (0.0-1.8); Eosinophils % (Auto) 0.2 % (0.0-4.3); Hematocrit 34.2 % (30.3-42.9); Hemoglobin 11.7 gm/dl (10.1-14.3); Lymphocytes # (Auto) 1.2 K/mm3 (1.2-5.4); Lymphocytes % (Auto) 13.3 % (13.4-35.0); Mean Corpuscular HGB Conc 34 % (30-34); Mean Corpuscular Volume 95 fl (79-97); Monocytes # (Auto) 0.6 K/mm3 (0.0-0.8); Platelet Count 199 K/mm3 (140-440); Red Blood Count 3.61 M/mm3 (3.65-5.03); Red Cell Distribution Width 13.2 % (13.2-15.2)
[2019-02-17] MEDS: MORPHINE IV PRN ×6 (05:50→23:30)
[2019-02-17] MEDS: ATIVAN IV PRN ×4 (05:52→20:29)
--- NOTE | 2019-02-17 07:41 | Progress Note ---
Assessment and Plan Assessment and plan: 53-year-old woman who presents to the hospital with abdominal pain distention nausea and vomiting. Has history of section over 20 years ago. Small bowel obstruction Continue NG tube to suction, general surgery input appreciated, status post mineral oil. Follow-up small bowel series GI bleed ruled out, hemoglobin stable, she had dark bilious output from her NG tube, nursing staff and patient reassured Anxiety disorder Unable to take oral meds due to SBO, Ativan IV as needed DVT prophylaxis chemical History Interval history: She feels less anxious today Review of systems Constitutional: No fevers, no malaise, no joint pains CVS: No chest pain, no orthopnea, no pedal edema GI: Complaining of abdominal pain distention and nausea, but feels better Respiratory: No shortness of breath, no wheezing, no coughing Hospitalist Physical - Physical exam Narrative exam: General.: Mild distress HEENT: Moist mucous membranes, extraocular muscles intact, no lymphadenopathy Neck: supple Cardiac: S1-S2 heard Lungs: clear to auscultation bilaterally Abdomen: soft , distended, hypoactive bowel sounds Extremities: no edema clubbing or cyanosis Skin: no rash or lesions Neurologic: no gross focal deficits Psych: calm, and cooperative, patient is anxious - Constitutional Vitals: Temp Pulse Resp BP Pulse Ox 97.3 F L 55 L 20 141/48 92 02/17/19 04:41 02/17/19 04:41 02/17/19 04:41 02/17/19 04:41 02/17/19 04:41 Results - Labs CBC & Chem 7: 02/17/19 05:19 02/17/19 07:47 Labs: Laboratory Last Values WBC 9.4 K/mm3 (4.5-11.0) 02/17/19 05:19 RBC 3.61 M/mm3 (3.65-5.03) L 02/17/19 05:19 Hgb 11.7 gm/dl (10.1-14.3) 02/17/19 05:19 Hct 34.2 % (30.3-42.9) 02/17/19 05:19 MCV 95 fl (79-97) 02/17/19 05:19 MCH 33 pg (28-32) H 02/17/19 05:19 MCHC 34 % (30-34) 02/17/19 05:19 RDW 13.2 % (13.2-15.2) 02/17/19 05:19 Plt Count 199 K/mm3 (140-440) 02/17/19 05:19 Lymph % (Auto) 13.3 % (13.4-35.0) L 02/17/19 05:19 [place] % (Auto) 6.0 % (0.0-7.3) 02/17/19 05:19 Eos % (Auto) 0.2 % (0.0-4.3) 02/17/19 05:19 Baso % (Auto) 0.7 % (0.0-1.8) 02/17/19 05:19 Lymph # 1.2 K/mm3 (1.2-5.4) 02/17/19 05:19 [place] # 0.6 K/mm3 (0.0-0.8) 02/17/19 05:19 Eos # 0.0 K/mm3 (0.0-0.4) 02/17/19 05:19 Baso # 0.1 K/mm3 (0.0-0.1) 02/17/19 05:19 Seg Neutrophils % 79.8 % (40.0-70.0) H 02/17/19 05:19 Seg Neutrophils # 7.5 K/mm3 (1.8-7.7) 02/17/19 05:19 Sodium 140 mmol/L (137-145) 02/14/19 16:15 Potassium 4.5 mmol/L (3.6-5.0) 02/14/19 19:00 Chloride 99.8 mmol/L (98-107) 02/14/19 16:15 Carbon Dioxide 25 mmol/L (22-30) 02/14/19 16:15 Anion Gap 21 mmol/L 02/14/19 16:15 BUN 16 mg/dL (7-17) 02/14/19 16:15 Creatinine 0.8 mg/dL (0.7-1.2) 02/14/19 16:15 Estimated GFR > 60 ml/min 02/14/19 16:15 BUN/Creatinine Ratio 20 % 02/14/19 16:15 Glucose 147 mg/dL (65-100) H 02/14/19 16:15 POC Glucose 127 (70-105) H 02/17/19 05:52 Calcium 8.5 mg/dL (8.4-10.2) 02/14/19 16:15 Total Bilirubin 0.70 mg/dL (0.1-1.2) 02/14/19 16:15 AST 29 units/L (5-40) 02/14/19 16:15 ALT 23 units/L (7-56) 02/14/19 16:15 Alkaline Phosphatase 95 units/L (35-129) 02/14/19 16:15 Total Protein 6.4 g/dL (6.3-8.2) 02/14/19 16:15 Albumin 3.6 g/dL (3.9-5) L 02/14/19 16:15 Albumin/Globulin Ratio 1.3 % 02/14/19 16:15 Lipase 13 units/L (13-60) 02/14/19 16:15 Urine Color Yellow (Yellow) 02/14/19 Unknown Urine Turbidity Clear (Clear) 02/14/19 Unknown Urine pH 5.0 (5.0-7.0) 02/14/19 Unknown Ur Specific [place] 1.055 (1.003-1.030) H 02/14/19 Unknown Urine Protein <15 mg/dl mg/dL (Negative) 02/14/19 Unknown Urine Glucose (UA) Neg mg/dL (Negative) 02/14/19 Unknown Urine Ketones Tr mg/dL (Negative) 02/14/19 Unknown Urine Blood Neg (Negative) 02/14/19 Unknown Urine Nitrite Neg (Negative) 02/14/19 Unknown Urine Bilirubin Neg (Negative) 02/14/19 Unknown Urine Urobilinogen 2.0 mg/dL (<2.0) 02/14/19 Unknown Ur Leukocyte Esterase Neg (Negative) 02/14/19 Unknown Urine WBC (Auto) 1.0 /HPF (0.0-6.0) 02/14/19 Unknown Urine RBC (Auto) 1.0 /HPF (0.0-6.0) 02/14/19 Unknown Urine Mucus Few /HPF 02/14/19 Unknown Active Medications - Current Medications Current Medications: Generic Name Dose Route Start Last Admin Trade Name Freq PRN Reason Stop Dose Admin Acetaminophen 650 mg 02/14/19 22:54 Tylenol TN Q4H PRN Fever >101 Dextrose 50 ml 02/15/19 05:24 D50w (25gm) Syringe IV PRN PRN Hypoglycemia Enoxaparin Sodium 40 mg 02/16/19 22:00 02/16/19 21:30 Lovenox SUB-Q 40 mg QDAY@2200 JUAN Administration Fentanyl 25 mcg 02/16/19 12:00 02/16/19 13:00 Duragesic TD 25 mcg Q72HR JUAN Administration Sodium Chloride 1,000 mls @ 125 mls/hr 02/14/19 23:00 02/17/19 02:41 Nacl 0.9% 1000 Ml IV 125 mls/hr DIRECT JUAN Administration Insulin Human Regular 0 units 02/15/19 06:00 02/17/19 05:45 Humulin R SUB-Q Not Given Q4HR [facility] Protocol Lorazepam 1 mg 02/15/19 14:28 02/17/19 05:52 Ativan IV 1 mg Q4H PRN Administration Anxiety Mineral Oil 30 ml 02/16/19 10:30 02/17/19 05:44 Mineral Oil FEEDTUBE 30 ml Q4HR JUAN Administration Morphine Sulfate 2 mg 02/14/19 22:53 02/17/19 05:50 Morphine IV 2 mg Q3H PRN Administration Pain, Moderate (4-6) Ondansetron HCl 4 mg 02/14/19 22:53 02/17/19 00:02 Zofran IV 4 mg Q8H PRN Administration Nausea And Vomiting Pantoprazole Sodium 40 mg 02/16/19 10:00 02/16/19 21:30 Protonix IV 40 mg BID JUAN Administration Phenol 1 spray 02/16/19 19:31 02/16/19 21:00 Chloraseptic MM 1 spray Q2H PRN Administration Sore Throat Sodium Chloride 20 ml 02/16/19 14:00 02/17/19 05:46 Nacl 0.9% IR 20 ml Q8HR JUAN Administration
[2019-02-17 08:25] LABS: BUN/Creatinine Ratio 28; Blood Urea Nitrogen 17 mg/dL (7-17); Calcium 8.3 mg/dL (8.4-10.2); Hemolysis Index 13
--- NOTE | 2019-02-17 09:53 | XRay Report ---
ABDOMEN 1 VIEW(S) INDICATION / CLINICAL INFORMATION: sbo. COMPARISON: 02/16/2019 FINDINGS: TUBES / LINES: NG tube remains in the stomach. BOWEL GAS PATTERN: No significant abnormality. Again there is no definite evidence for bowel obstruct ion with no significant small or large bowel distention and air seen in the colon extending to the re ctum. FREE AIR / EXTRALUMINAL GAS: None seen. ADDITIONAL FINDINGS: No significant additional findings. IMPRESSION: 1. No significant abnormality. Signer Name: Chadd Dunn MD Signed: 02/17/2019 9:48 AM Workstation Name: [email or web address]
--- NOTE | 2019-02-17 09:53 | Progress Note ---
Assessment and Plan Pt just completed abd series. no specific compl. + flatus Abd soft, non tender. abd series not officially read yet. appears status quo from yesterday. slowly improving partial sbo clinically stable continue present care Selected Entries 02/17/19 04:41 Temperature 97.3 F L Pulse Rate 55 L Respiratory 20 Rate Blood Pressure 141/48 Laboratory Tests 02/17/19 05:19 WBC 9.4 Hgb 11.7 Hct 34.2 Objective Vital Signs - 12hr 02/16/19 02/17/19 23:01 04:41 Temperature 97.9 F 97.3 F L Pulse Rate 70 55 L Respiratory 18 20 Rate Blood Pressure 141/48 Blood Pressure 147/84 [Left] O2 Sat by Pulse 100 92 Oximetry - Labs 02/17/19 05:19 02/17/19 07:47 Diabetes panel 02/17/19 Range/Units 07:47 Sodium 147 H (137-145) mmol/L Potassium 3.6 (3.6-5.0) mmol/L Chloride 107.6 H (98-107) mmol/L Carbon Dioxide 26 (22-30) mmol/L BUN 17 (7-17) mg/dL Creatinine 0.6 L (0.7-1.2) mg/dL Glucose 141 H (65-100) mg/dL Calcium 8.3 L (8.4-10.2) mg/dL Calcium panel 02/17/19 Range/Units 07:47 Calcium 8.3 L (8.4-10.2) mg/dL Phosphorus 2.50 (2.5-4.5) mg/dL Pituitary panel 02/17/19 Range/Units 07:47 Sodium 147 H (137-145) mmol/L Potassium 3.6 (3.6-5.0) mmol/L Chloride 107.6 H (98-107) mmol/L Carbon Dioxide 26 (22-30) mmol/L BUN 17 (7-17) mg/dL Creatinine 0.6 L (0.7-1.2) mg/dL Glucose 141 H (65-100) mg/dL Calcium 8.3 L (8.4-10.2) mg/dL Adrenal panel 02/17/19 Range/Units 07:47 Sodium 147 H (137-145) mmol/L Potassium 3.6 (3.6-5.0) mmol/L Chloride 107.6 H (98-107) mmol/L Carbon Dioxide 26 (22-30) mmol/L BUN 17 (7-17) mg/dL Creatinine 0.6 L (0.7-1.2) mg/dL Glucose 141 H (65-100) mg/dL Calcium 8.3 L (8.4-10.2) mg/dL
[2019-02-17] MEDS: PROTONIX IV SCH ×2 (10:02→21:31)
[2019-02-17] MEDS: DEEP SEA NS SCH ×3 (15:31→22:01)
[2019-02-17] MEDS: ENOXAPARIN SUB-Q SCH (21:33)
[2019-02-18] MEDS: NACL 0.9% 1000 ML 1,000 ML IV SCH ×3 (00:14→18:51)
[2019-02-18] MEDS: NACL 0.9% IR SCH ×4 (00:14→22:22)
[2019-02-18] MEDS: ATIVAN IV PRN ×3 (00:44→12:04)
[2019-02-18] MEDS: MINERAL OIL FEEDTUBE SCH ×4 (01:09→11:14)
[2019-02-18] MEDS: MORPHINE IV PRN ×3 (02:30→11:46)
[2019-02-18] MEDS: HumuLIN R SUB-Q SCH ×2 (02:49→10:00)
--- NOTE | 2019-02-18 03:37 | Event Note ---
Date: 02/18/19 PATIENT REPORTED BY NURSE ON DUTY TO BE HAVING BRADYCARDIA WITH NO CHEST PAIN , SOB OR DIZZINESS. WILL ORDER 2 D ECHO AND 1 SET OF CARDIAC ENZYMES AND PUT PATIENT ON TELEMETRY
[2019-02-18 06:02] LABS: Basophils # (Auto) 0.1 K/mm3 (0.0-0.1); Basophils % (Auto) 0.8 % (0.0-1.8); Eosinophils # (Auto) 0.1 K/mm3 (0.0-0.4); Eosinophils % (Auto) 0.9 % (0.0-4.3); Hematocrit 32.5 % (30.3-42.9); Hemoglobin 11.2 gm/dl (10.1-14.3); Lymphocytes # (Auto) 1.8 K/mm3 (1.2-5.4); Lymphocytes % (Auto) 21.4 % (13.4-35.0); Mean Corpuscular HGB Conc 34 % (30-34); Mean Corpuscular Volume 95 fl (79-97); Monocytes # (Auto) 0.4 K/mm3 (0.0-0.8); Monocytes % (Auto) 5.1 % (0.0-7.3); Platelet Count 195 K/mm3 (140-440); Red Blood Count 3.43 M/mm3 (3.65-5.03); Red Cell Distribution Width 13.2 % (13.2-15.2)
[2019-02-18 06:15] LABS: BUN/Creatinine Ratio 32; Blood Urea Nitrogen 16 mg/dL (7-17); Calcium 7.9 mg/dL (8.4-10.2); Hemolysis Index 25
[2019-02-18 06:23] LABS: Creatine Kinase MB < 1.0 ng/mL (0.0-4.0)
[2019-02-18] MEDS: ZOFRAN IV PRN (08:01)
--- NOTE | 2019-02-18 09:23 | XRay Report ---
ABDOMINAL SERIES WITH CHEST X-RAY ONE VIEW INDICATION / CLINICAL INFORMATION: Small bowel obstruction. COMPARISON: Abdominal series of 02/16/2019 and 02/17/2019 FINDINGS: Unchanged appearance of the chest, without acute abnormality. Enteric suction tube may have been with drawn slightly, but the sidehole remains below the level of the diaphragm in the proximal stomach. Cholecystectomy clips and other surgical changes of the lumbar spine and pelvis are again seen. Upright view shows no subdiaphragmatic free air or differential air-fluid levels. Paucity of small ioana wel gas limits evaluation, but no abnormally dilated intestinal loops are seen. Small volume of gas i s seen in the descending colon. IMPRESSION: No clear change from yesterday. No radiographic evidence of small bowel obstruction, with paucity of small bowel gas noted. Signer Name: Antonio Rosas MD Signed: 02/18/2019 9:19 AM Workstation Name: [id number]
[2019-02-18] MEDS: DEEP SEA NS SCH ×5 (10:00→21:28)
[2019-02-18] MEDS: PROTONIX IV SCH ×3 (10:01→21:26)
--- NOTE | 2019-02-18 10:55 | Progress Note ---
Assessment and Plan Assessment and plan: 53-year-old woman who presents to the hospital with abdominal pain distention nausea and vomiting. Has history of section over 20 years ago. Small bowel obstruction Continue NG tube to suction, general surgery input appreciated, status post mineral oil. -start Popsicles and ice chips, SBFT tomorrow GI bleed ruled out, hemoglobin stable, she had dark bilious output from her NG tube, nursing staff and patient reassured Anxiety disorder cont home meds chronic pain cont home meds fentanyl patch dose cut in half due to bradycardia Hypokalemia Replete IV Bradycardia Likely iatrogenic, patient now on fentanyl patch and Xanax EKG no acute findings, echo pending, asymptomatic DVT prophylaxis chemical History Interval history: She feels less anxious today Review of systems Constitutional: No fevers, no malaise, no joint pains CVS: No chest pain, no orthopnea, no pedal edema GI: abdominal pain distention and nausea have improved Respiratory: No shortness of breath, no wheezing, no coughing Hospitalist Physical - Physical exam Narrative exam: General.: Mild distress HEENT: Moist mucous membranes, extraocular muscles intact, no lymphadenopathy Neck: supple Cardiac: S1-S2 heard Lungs: clear to auscultation bilaterally Abdomen: soft , distended, hypoactive bowel sounds Extremities: no edema clubbing or cyanosis Skin: no rash or lesions Neurologic: no gross focal deficits Psych: calm, and cooperative, patient is anxious - Constitutional Vitals: Temp Pulse Resp BP Pulse Ox 98.8 F 46 L 20 156/63 91 02/18/19 05:29 02/18/19 05:29 02/18/19 05:29 02/18/19 05:29 02/18/19 05:29 Results - Labs CBC & Chem 7: 02/18/19 05:43 02/18/19 05:43 Labs: Laboratory Last Values WBC 8.5 K/mm3 (4.5-11.0) 02/18/19 05:43 RBC 3.43 M/mm3 (3.65-5.03) L 02/18/19 05:43 Hgb 11.2 gm/dl (10.1-14.3) 02/18/19 05:43 Hct 32.5 % (30.3-42.9) 02/18/19 05:43 MCV 95 fl (79-97) 02/18/19 05:43 MCH 33 pg (28-32) H 02/18/19 05:43 MCHC 34 % (30-34) 02/18/19 05:43 RDW 13.2 % (13.2-15.2) 02/18/19 05:43 Plt Count 195 K/mm3 (140-440) 02/18/19 05:43 Lymph % (Auto) 21.4 % (13.4-35.0) 02/18/19 05:43 [place] % (Auto) 5.1 % (0.0-7.3) 02/18/19 05:43 Eos % (Auto) 0.9 % (0.0-4.3) 02/18/19 05:43 Baso % (Auto) 0.8 % (0.0-1.8) 02/18/19 05:43 Lymph # 1.8 K/mm3 (1.2-5.4) 02/18/19 05:43 [place] # 0.4 K/mm3 (0.0-0.8) 02/18/19 05:43 Eos # 0.1 K/mm3 (0.0-0.4) 02/18/19 05:43 Baso # 0.1 K/mm3 (0.0-0.1) 02/18/19 05:43 Seg Neutrophils % 71.8 % (40.0-70.0) H 02/18/19 05:43 Seg Neutrophils # 6.1 K/mm3 (1.8-7.7) 02/18/19 05:43 Sodium 146 mmol/L (137-145) H 02/18/19 05:43 Potassium 3.2 mmol/L (3.6-5.0) L 02/18/19 05:43 Chloride 110.3 mmol/L (98-107) H 02/18/19 05:43 Carbon Dioxide 21 mmol/L (22-30) L 02/18/19 05:43 Anion Gap 18 mmol/L 02/18/19 05:43 BUN 16 mg/dL (7-17) 02/18/19 05:43 Creatinine 0.5 mg/dL (0.7-1.2) L 02/18/19 05:43 Estimated GFR > 60 ml/min 02/18/19 05:43 BUN/Creatinine Ratio 32 % 02/18/19 05:43 Glucose 106 mg/dL (65-100) H 02/18/19 05:43 POC Glucose 114 (70-105) H 02/18/19 02:50 Calcium 7.9 mg/dL (8.4-10.2) L 02/18/19 05:43 Phosphorus 2.50 mg/dL (2.5-4.5) 02/17/19 07:47 Magnesium 2.10 mg/dL (1.7-2.3) 02/17/19 07:47 Total Bilirubin 0.70 mg/dL (0.1-1.2) 02/14/19 16:15 AST 29 units/L (5-40) 02/14/19 16:15 ALT 23 units/L (7-56) 02/14/19 16:15 Alkaline Phosphatase 95 units/L (35-129) 02/14/19 16:15 Total Creatine Kinase 33 units/L (30-135) 02/18/19 05:43 CK-MB (CK-2) < 1.0 ng/mL (0.0-4.0) 02/18/19 05:43 CK-MB (CK-2) Rel Index 3.0 (0-4) 02/18/19 05:43 Troponin T < 0.010 ng/mL (0.00-0.029) 02/18/19 05:43 Total Protein 6.4 g/dL (6.3-8.2) 02/14/19 16:15 Albumin 3.6 g/dL (3.9-5) L 02/14/19 16:15 Albumin/Globulin Ratio 1.3 % 02/14/19 16:15 Lipase 13 units/L (13-60) 02/14/19 16:15 Urine Color Yellow (Yellow) 02/14/19 Unknown Urine Turbidity Clear (Clear) 02/14/19 Unknown Urine pH 5.0 (5.0-7.0) 02/14/19 Unknown Ur Specific [place] 1.055 (1.003-1.030) H 02/14/19 Unknown Urine Protein <15 mg/dl mg/dL (Negative) 02/14/19 Unknown Urine Glucose (UA) Neg mg/dL (Negative) 02/14/19 Unknown Urine Ketones Tr mg/dL (Negative) 02/14/19 Unknown Urine Blood Neg (Negative) 02/14/19 Unknown Urine Nitrite Neg (Negative) 02/14/19 Unknown Urine Bilirubin Neg (Negative) 02/14/19 Unknown Urine Urobilinogen 2.0 mg/dL (<2.0) 02/14/19 Unknown Ur Leukocyte Esterase Neg (Negative) 02/14/19 Unknown Urine WBC (Auto) 1.0 /HPF (0.0-6.0) 02/14/19 Unknown Urine RBC (Auto) 1.0 /HPF (0.0-6.0) 02/14/19 Unknown Urine Mucus Few /HPF 02/14/19 Unknown Active Medications - Current Medications Current Medications: Generic Name Dose Route Start Last Admin Trade Name Freq PRN Reason Stop Dose Admin Acetaminophen 650 mg 02/14/19 22:54 Tylenol MS Q4H PRN Fever >101 Dextrose 50 ml 02/15/19 05:24 D50w (25gm) Syringe IV PRN PRN Hypoglycemia Enoxaparin Sodium 40 mg 02/16/19 22:00 02/17/19 21:33 Lovenox SUB-Q 40 mg QDAY@2200 JUAN Administration Fentanyl 25 mcg 02/16/19 12:00 02/16/19 13:00 Duragesic TD 25 mcg Q72HR JUAN Administration Sodium Chloride 1,000 mls @ 125 mls/hr 02/14/19 23:00 02/18/19 08:01 Nacl 0.9% 1000 Ml IV 125 mls/hr DIRECT JUAN Administration Potassium Chloride 40 meq/ 520 mls @ 125 mls/hr 02/18/19 11:00 Sodium Chloride IV 02/18/19 15:10 DIRECT JUAN Lorazepam 1 mg 02/15/19 14:28 02/18/19 06:10 Ativan IV 1 mg Q4H PRN Administration Anxiety Mineral Oil 30 ml 02/16/19 10:30 02/18/19 10:01 Mineral Oil FEEDTUBE Not Given Q4HR JUAN Morphine Sulfate 2 mg 02/14/19 22:53 02/18/19 08:00 Morphine IV 2 mg Q3H PRN Administration Pain, Moderate (4-6) Ondansetron HCl 4 mg 02/14/19 22:53 02/18/19 08:01 Zofran IV 4 mg Q8H PRN Administration Nausea And Vomiting Pantoprazole Sodium 40 mg 10/18/19 10:00 02/18/19 10:01 Protonix IV Not Given BID JUAN Phenol 1 spray 02/16/19 19:31 02/16/19 21:00 Chloraseptic MM 1 spray Q2H PRN Administration Sore Throat Sodium Chloride 20 ml 02/16/19 14:00 02/18/19 06:10 Nacl 0.9% IR 20 ml Q8HR JUAN Administration Sodium Chloride 1 spray 02/17/19 14:00 02/18/19 10:00 [place] NS Not Given QID JUAN
[2019-02-18] MEDS ORDERED: KCL 40 MEQ in NACL 0.45% 500 ML IV SCH (11:00)
--- NOTE | 2019-02-18 12:34 | Progress Note ---
Assessment and Plan Pt feeling well. + BM x 4 Abd soft, non tender Abd series - Upright view shows no subdiaphragmatic free air or differential air-fluid levels. Paucity of small bowel gas limits evaluation, but no abnormally dilated intestinal loops are seen. Small volume of gas is seen in the descending colon. IMPRESSION: No clear change from yesterday. No radiographic evidence of small bowel obstruction, with paucity of small bowel gas noted. clinically much improved resolved partial sbo? d/c ng keep NPO x 24 hrs except for ice chips, popsicles and po meds SBFT study in am may begin cl liq no carbonated after study if normal contrast flow noted Selected Entries 02/18/19 05:29 Temperature 98.8 F Pulse Rate 46 L Respiratory 20 Rate Blood Pressure 156/63 Laboratory Tests 02/18/19 02/18/19 05:43 05:43 WBC 8.5 Hgb 11.2 Hct 32.5 Potassium 3.2 L Objective Vital Signs - 12hr 02/18/19 02/18/19 02/18/19 00:56 02:30 05:29 Temperature 98.8 F Pulse Rate 47 L 46 L Respiratory 18 18 20 Rate Blood Pressure 156/63 Blood Pressure 145/55 [Left] O2 Sat by Pulse 91 Oximetry - Labs 02/18/19 05:43 02/18/19 05:43 Diabetes panel 02/18/19 Range/Units 05:43 Sodium 146 H (137-145) mmol/L Potassium 3.2 L (3.6-5.0) mmol/L Chloride 110.3 H (98-107) mmol/L Carbon Dioxide 21 L (22-30) mmol/L BUN 16 (7-17) mg/dL Creatinine 0.5 L (0.7-1.2) mg/dL Glucose 106 H (65-100) mg/dL Calcium 7.9 L (8.4-10.2) mg/dL Calcium panel 02/18/19 Range/Units 05:43 Calcium 7.9 L (8.4-10.2) mg/dL Pituitary panel 02/18/19 Range/Units 05:43 Sodium 146 H (137-145) mmol/L Potassium 3.2 L (3.6-5.0) mmol/L Chloride 110.3 H (98-107) mmol/L Carbon Dioxide 21 L (22-30) mmol/L BUN 16 (7-17) mg/dL Creatinine 0.5 L (0.7-1.2) mg/dL Glucose 106 H (65-100) mg/dL Calcium 7.9 L (8.4-10.2) mg/dL Adrenal panel 02/18/19 Range/Units 05:43 Sodium 146 H (137-145) mmol/L Potassium 3.2 L (3.6-5.0) mmol/L Chloride 110.3 H (98-107) mmol/L Carbon Dioxide 21 L (22-30) mmol/L BUN 16 (7-17) mg/dL Creatinine 0.5 L (0.7-1.2) mg/dL Glucose 106 H (65-100) mg/dL Calcium 7.9 L (8.4-10.2) mg/dL
[2019-02-18] MEDS ORDERED: OXYCODONE HCL PO PRN (12:54)
[2019-02-18] MEDS ORDERED: SENOKOT S PO PRN (12:54)
[2019-02-18] MEDS ORDERED: ACETAMINOPHEN PO PRN (12:54)
[2019-02-18] MEDS ORDERED: DURAGESIC TD SCH (13:00)
[2019-02-18] MEDS ORDERED: NON-FORMULARY (Alprazolam [Xanax Tab] 2 MG) PO SCH (14:00)
[2019-02-18] MEDS ORDERED: NON-FORMULARY (Baclofen [Baclofen] 10 MG) PO SCH (14:00)
[2019-02-18] MEDS: XANAX PO SCH ×3 (15:38→21:26)
[2019-02-18] MEDS: PERCOCET 5/325 PO PRN (15:38)
[2019-02-18] MEDS: LIORESAL PO SCH ×3 (15:39→21:25)
[2019-02-18] MEDS: BUSPAR PO SCH ×2 (18:54→22:24)
[2019-02-18] MEDS: CLARITIN PO SCH (21:25)
[2019-02-18] MEDS: ENOXAPARIN SUB-Q SCH (21:26)
[2019-02-18] MEDS: PRAVACHOL PO SCH (21:26)
[2019-02-18] MEDS ORDERED: NON-FORMULARY (Trazodone Hcl [Trazodone] 150 MG) PO SCH (22:00)
[2019-02-18] MEDS: DESYREL PO SCH (22:24)
[2019-02-19] MEDS: PERCOCET 5/325 PO PRN ×2 (01:12→13:58)
[2019-02-19] MEDS: NACL 0.9% IR SCH ×3 (05:46→21:08)
--- NOTE | 2019-02-19 09:10 | Progress Note ---
Assessment and Plan Pt currently sitting on x-ray table drinking contrast for SBFT study. status quo. + flatus surgically stable Awaiting SBFT study. may begin cl liq no carbonated today if study wnl Objective Vital Signs - 12hr 02/19/19 02/19/19 02/19/19 00:00 01:12 05:51 Temperature 98.2 F Pulse Rate 47 L Pulse Rate [ 48 L Apical] Respiratory 18 20 Rate Blood Pressure 139/49 O2 Sat by Pulse 87 Oximetry - Labs 02/18/19 05:43 02/18/19 05:43
[2019-02-19] MEDS ORDERED: NON-FORMULARY (Dexlansoprazole [Dexilant] 60 MG) PO SCH (10:00)
[2019-02-19] MEDS ORDERED: NON-FORMULARY (Cyanocobalamin (Vitamin B-12) [Vitamin B-12] 500 MCG) SL SCH (10:00)
[2019-02-19] MEDS: PROTONIX IV SCH ×2 (10:00→21:06)
[2019-02-19] MEDS: MOBIC PO SCH (10:00)
[2019-02-19] MEDS ORDERED: NON-FORMULARY (Multivitamin [Multi-Vitamin Daily] 1 TAB) PO SCH (10:00)
[2019-02-19] MEDS ORDERED: NON-FORMULARY (Citalopram Hydrobromide [Celexa] 40 MG) PO SCH (10:00)
[2019-02-19] MEDS: LIORESAL PO SCH ×2 (10:00→14:00)
[2019-02-19] MEDS: DEEP SEA NS SCH ×4 (10:00→21:08)
[2019-02-19] MEDS ORDERED: NON-FORMULARY (Lovastatin [Altoprev] 40 MG) PO SCH (10:00)
[2019-02-19] MEDS ORDERED: NON-FORMULARY (Meloxicam [Mobic] 15 MG) PO SCH (10:00)
[2019-02-19] MEDS: BUSPAR PO SCH ×3 (10:00→21:03)
--- NOTE | 2019-02-19 10:41 | Progress Note ---
Assessment and Plan Assessment and plan: 53-year-old woman who presents to the hospital with abdominal pain distention nausea and vomiting. Has history of section over 20 years ago. Small bowel obstruction Continue NG tube to suction, general surgery input appreciated, status post mineral oil. SBFT showed partial obstruction with normal transit time of contrast. started clear liquid diet with no carbonated beverages per rec from [facility], full liquid for diner GI bleed ruled out, hemoglobin stable, she had dark bilious output from her NG tube, nursing staff and patient reassured Bradycardia Patient takes fentanyl patch and benzodiazepines at home. Therefore they should not be causing bradycardia in this patient of the of her chronic meds. Fentanyl patch has been cut in half, patient still bradycardic. She has severe anxiety does not want to have benzodiazepines help. Echo shows decreased EF, cardiology consulted. Awaiting further recommendations from cardiology, check TSH Chronic systolic CHF echo shows EF of 35%. Patient denies history of heart failure. Cardiology input appreciated, patient likely needs coronary risk stratification in form of possible stress test prior to discharge Hypokalemia Repleted IV Anxiety disorder cont home meds chronic pain cont home meds fentanyl patch dose cut in half due to bradycardia Sp fall at radiology w bilat wrist pain and neck pain bilat wrist Xray ordered, pain meds prn, verge report was done per radiology staff ordered Cervical xray DVT prophylaxis chemical History Interval history: She feels less anxious today sp fall at Radiology department, said she hurt her wrists and neck is having BMs Review of systems Constitutional: No fevers, no malaise, no joint pains CVS: No chest pain, no orthopnea, no pedal edema Nursing staff reports that she continues to have bradycardia to the 30s and 40s GI: abdominal pain distention and nausea have improved Respiratory: No shortness of breath, no wheezing, no coughing Hospitalist Physical - Physical exam Narrative exam: General.: No distress HEENT: Moist mucous membranes, extraocular muscles intact, no lymphadenopathy Neck: supple Cardiac: S1-S2 heard Lungs: clear to auscultation bilaterally Abdomen: soft , distended, normoactive bowel sounds Extremities: no edema clubbing or cyanosis bilat wrist tender, R> L Skin: no rash or lesions Neurologic: no gross focal deficits Psych: calm, and cooperative, patient is anxious - Constitutional Vitals: Temp Pulse Resp BP Pulse Ox 98.2 F 47 L 20 139/49 87 02/19/19 05:51 02/19/19 05:51 02/19/19 05:51 02/19/19 05:51 02/19/19 05:51 Results - Labs CBC & Chem 7: 02/18/19 05:43 02/18/19 05:43 Labs: Laboratory Last Values WBC 8.5 K/mm3 (4.5-11.0) 02/18/19 05:43 RBC 3.43 M/mm3 (3.65-5.03) L 02/18/19 05:43 Hgb 11.2 gm/dl (10.1-14.3) 02/18/19 05:43 Hct 32.5 % (30.3-42.9) 02/18/19 05:43 MCV 95 fl (79-97) 02/18/19 05:43 MCH 33 pg (28-32) H 02/18/19 05:43 MCHC 34 % (30-34) 02/18/19 05:43 RDW 13.2 % (13.2-15.2) 02/18/19 05:43 Plt Count 195 K/mm3 (140-440) 02/18/19 05:43 Lymph % (Auto) 21.4 % (13.4-35.0) 02/18/19 05:43 [place] % (Auto) 5.1 % (0.0-7.3) 02/18/19 05:43 Eos % (Auto) 0.9 % (0.0-4.3) 02/18/19 05:43 Baso % (Auto) 0.8 % (0.0-1.8) 02/18/19 05:43 Lymph # 1.8 K/mm3 (1.2-5.4) 02/18/19 05:43 [place] # 0.4 K/mm3 (0.0-0.8) 02/18/19 05:43 Eos # 0.1 K/mm3 (0.0-0.4) 02/18/19 05:43 Baso # 0.1 K/mm3 (0.0-0.1) 02/18/19 05:43 Seg Neutrophils % 71.8 % (40.0-70.0) H 02/18/19 05:43 Seg Neutrophils # 6.1 K/mm3 (1.8-7.7) 02/18/19 05:43 Sodium 146 mmol/L (137-145) H 02/18/19 05:43 Potassium 3.2 mmol/L (3.6-5.0) L 02/18/19 05:43 Chloride 110.3 mmol/L (98-107) H 02/18/19 05:43 Carbon Dioxide 21 mmol/L (22-30) L 02/18/19 05:43 Anion Gap 18 mmol/L 02/18/19 05:43 BUN 16 mg/dL (7-17) 02/18/19 05:43 Creatinine 0.5 mg/dL (0.7-1.2) L 02/18/19 05:43 Estimated GFR > 60 ml/min 02/18/19 05:43 BUN/Creatinine Ratio 32 % 02/18/19 05:43 Glucose 106 mg/dL (65-100) H 02/18/19 05:43 POC Glucose 135 (70-105) H 02/18/19 11:10 Calcium 7.9 mg/dL (8.4-10.2) L 02/18/19 05:43 Phosphorus 2.50 mg/dL (2.5-4.5) 02/17/19 07:47 Magnesium 2.10 mg/dL (1.7-2.3) 02/17/19 07:47 Total Bilirubin 0.70 mg/dL (0.1-1.2) 02/14/19 16:15 AST 29 units/L (5-40) 02/14/19 16:15 ALT 23 units/L (7-56) 02/14/19 16:15 Alkaline Phosphatase 95 units/L (35-129) 02/14/19 16:15 Total Creatine Kinase 33 units/L (30-135) 02/18/19 05:43 CK-MB (CK-2) < 1.0 ng/mL (0.0-4.0) 02/18/19 05:43 CK-MB (CK-2) Rel Index 3.0 (0-4) 02/18/19 05:43 Troponin T < 0.010 ng/mL (0.00-0.029) 02/18/19 05:43 Total Protein 6.4 g/dL (6.3-8.2) 02/14/19 16:15 Albumin 3.6 g/dL (3.9-5) L 02/14/19 16:15 Albumin/Globulin Ratio 1.3 % 02/14/19 16:15 Lipase 13 units/L (13-60) 02/14/19 16:15 Urine Color Yellow (Yellow) 02/14/19 Unknown Urine Turbidity Clear (Clear) 02/14/19 Unknown Urine pH 5.0 (5.0-7.0) 02/14/19 Unknown Ur Specific [place] 1.055 (1.003-1.030) H 02/14/19 Unknown Urine Protein <15 mg/dl mg/dL (Negative) 02/14/19 Unknown Urine Glucose (UA) Neg mg/dL (Negative) 02/14/19 Unknown Urine Ketones Tr mg/dL (Negative) 02/14/19 Unknown Urine Blood Neg (Negative) 02/14/19 Unknown Urine Nitrite Neg (Negative) 02/14/19 Unknown Urine Bilirubin Neg (Negative) 02/14/19 Unknown Urine Urobilinogen 2.0 mg/dL (<2.0) 02/14/19 Unknown Ur Leukocyte Esterase Neg (Negative) 02/14/19 Unknown Urine WBC (Auto) 1.0 /HPF (0.0-6.0) 02/14/19 Unknown Urine RBC (Auto) 1.0 /HPF (0.0-6.0) 02/14/19 Unknown Urine Mucus Few /HPF 02/14/19 Unknown Active Medications - Current Medications Current Medications: Generic Name Dose Route Start Last Admin Trade Name Freq PRN Reason Stop Dose Admin Acetaminophen 650 mg 02/14/19 22:54 Tylenol [place] Q4H PRN Fever >101 Alprazolam 2 mg 02/18/19 14:00 02/18/19 21:26 Xanax PO 2 mg QID JUAN Administration Aspirin 81 mg 02/19/19 10:00 Baby Aspirin PO QDAY JUAN Baclofen 10 mg 02/18/19 14:00 02/18/19 21:25 Lioresal PO 10 mg QID JUAN Administration Buspirone HCl 15 mg 02/18/19 14:00 02/18/19 22:24 Buspar PO 15 mg TID JUAN Administration Citalopram Hydrobromide 40 mg 02/19/19 10:00 Celexa PO DAILY JUAN Cyanocobalamin 1,000 mcg 02/19/19 10:00 Vitamin B-12 PO QDAY [facility] Dextrose 50 ml 02/15/19 05:24 D50w (25gm) Syringe IV PRN PRN Hypoglycemia Enoxaparin Sodium 40 mg 02/16/19 22:00 02/18/19 21:26 Lovenox SUB-Q 40 mg QDAY@2200 JUAN Administration Fentanyl 12 mcg 02/18/19 13:00 02/18/19 18:52 Duragesic TD 12 mcg Q72HR JUAN Administration Sodium Chloride 1,000 mls @ 125 mls/hr 02/14/19 23:00 02/18/19 18:51 Nacl 0.9% 1000 Ml IV 125 mls/hr DIRECT JUAN Administration Loratadine 10 mg 02/18/19 22:00 02/18/19 21:25 Claritin PO 10 mg BID JUAN Administration Lorazepam 1 mg 02/15/19 14:28 02/18/19 12:04 Ativan IV 1 mg Q4H PRN Administration Anxiety Meloxicam 15 mg 02/19/19 10:00 Mobic PO QDAY [facility] Morphine Sulfate 2 mg 02/14/19 22:53 02/18/19 11:46 Morphine IV 2 mg Q3H PRN Administration Pain, Moderate (4-6) Multivitamins 1 each 02/19/19 10:00 Theragran Tab PO DAILY [facility] Ondansetron HCl 4 mg 02/14/19 22:53 02/18/19 08:01 Zofran IV 4 mg Q8H PRN Administration Nausea And Vomiting Oxycodone/Acetaminophen 1 tab 02/18/19 13:17 02/19/19 01:12 Percocet 5/325 PO 1 tab TID PRN Administration Pain, Moderate (4-6) Pantoprazole Sodium 40 mg 02/16/19 10:00 02/18/19 21:26 Protonix IV 40 mg BID [facility] Administration Phenol 1 spray 02/16/19 19:31 02/16/19 21:00 Chloraseptic MM 1 spray Q2H PRN Administration Sore Throat Pravastatin Sodium 80 mg 02/18/19 22:00 02/18/19 21:26 Pravachol PO 80 mg QHS JUAN Administration Senna/Docusate Sodium 1 tab 02/18/19 12:54 Senokot S PO BID PRN Constipation Sodium Chloride 20 ml 02/16/19 14:00 02/19/19 05:46 Nacl 0.9% IR Not Given Q8HR JUAN Sodium Chloride 1 spray 02/17/19 14:00 02/18/19 21:28 Deep Sea NS 1 spray QID JUAN Administration Trazodone HCl 150 mg 02/18/19 22:00 02/18/19 22:24 Desyrel PO 150 mg QHS JUAN Administration
--- NOTE | 2019-02-19 11:17 | Fluoroscopy Report ---
SMALL BOWEL FOLLOW-THROUGH HISTORY: Partial small bowel obstruction. TECHNIQUE: Single contrast barium technique utilized to evaluate the small bowel. FINDINGS: Small bowel transit time was one hour which is normal. Mildly dilated loops of proximal s mall bowel are identified throughout this examination measuring up to 2.6 m in greatest diameter. [place] small bowel loops are normal caliber measuring approximately 1.5 cm in diameter. There appears to be a transition point in the right lower quadrant which may represent an adhesion.. The terminal ileum is normal in appearance. The proximal colon and cecum are unremarkable. The appendix is not vis ualized. IMPRESSION: Findings suggestive of a partial distal small bowel obstruction as outlined above althou gh transit time of the contrast agent through the small bowel is within normal limits measuring appro ximately 1 hour. FLUOROSCOPIC TIME: 0.5 minutes NUMBER OF FLUOROSCOPIC IMAGES: 4 Signer Name: Evangelist Coughlin Jr, MD Signed: 02/19/2019 11:13 AM Workstation Name: [id number]
[2019-02-19] MEDS: VITAMIN B-12 PO SCH (13:39)
[2019-02-19] MEDS: CLARITIN PO SCH ×2 (13:42→21:06)
[2019-02-19] MEDS: THERAGRAN Tab PO SCH (13:42)
[2019-02-19] MEDS: celeXA PO SCH (13:43)
[2019-02-19] MEDS: XANAX PO SCH ×4 (13:43→21:06)
[2019-02-19] MEDS: BABY ASPIRIN PO SCH (13:46)
[2019-02-19] MEDS: NACL 0.9% 1000 ML 1,000 ML IV SCH ×2 (13:47→22:01)
[2019-02-19] MEDS ORDERED: ZANAFLEX PO PRN (14:30)
--- NOTE | 2019-02-19 15:36 | XRay Report ---
BILATERAL WRISTS, 2 VIEWS INDICATION: sp fall, wrist pain. COMPARISON: None. IMPRESSION: No acute osseous or soft tissue abnormality. No significant DJD. Signer Name: Evangelist Coughlin Jr, MD Signed: 02/19/2019 3:32 PM Workstation Name: [id number]
[2019-02-19 15:42] LABS: Basophils % (Auto) 0.7 % (0.0-1.8); Eosinophils # (Auto) 0.2 K/mm3 (0.0-0.4); Hematocrit 32.5 % (30.3-42.9); Hemoglobin 11.2 gm/dl (10.1-14.3); Lymphocytes # (Auto) 1.4 K/mm3 (1.2-5.4); Lymphocytes % (Auto) 19.8 % (13.4-35.0); Mean Corpuscular HGB Conc 34 % (30-34); Mean Corpuscular Volume 95 fl (79-97); Monocytes # (Auto) 0.4 K/mm3 (0.0-0.8); Monocytes % (Auto) 5.1 % (0.0-7.3); Platelet Count 213 K/mm3 (140-440); Red Blood Count 3.44 M/mm3 (3.65-5.03); Red Cell Distribution Width 13.2 % (13.2-15.2)
[2019-02-19 16:20] LABS: BUN/Creatinine Ratio 18; Blood Urea Nitrogen 11 mg/dL (7-17); Calcium 8.4 mg/dL (8.4-10.2); Hemolysis Index 11
--- NOTE | 2019-02-19 16:58 | XRay Report ---
CERVICAL SPINE SERIES 4 VIEWS INDICATION: sp fall, neck pain. COMPARISON: No relevant prior imaging study available. FINDINGS: Anterior fusion hardware at C3-4 projects in expected position. No acute, displaced fracture or subluxation is seen. There is borderline prevertebral soft tissue swelling anterior to the upper cervical spine. There is mild discogenic degenerative change at C2-3. IMPRESSION: 1. No acute fracture is seen. However, there is mild prevertebral soft tissue swelling. This could be related to the prior anterior fusion at C3-4. If clinical suspicion for acute fracture is high, CT s hould be considered. Signer Name: Florian Lowery MD Signed: 02/19/2019 4:54 PM Workstation Name: [id number]
[2019-02-19] MEDS: TYLENOL PO SCH (18:55)
[2019-02-19] MEDS: ROXICODONE PO PRN (18:56)
[2019-02-19] MEDS: DESYREL PO SCH (21:05)
[2019-02-19] MEDS: PRAVACHOL PO SCH (21:06)
[2019-02-19] MEDS: ENOXAPARIN SUB-Q SCH (21:06)
[2019-02-19] MEDS ORDERED: KCL 40 MEQ in NACL 0.45% 500 ML IV SCH (21:15)
[2019-02-19] MEDS: MORPHINE IV PRN (22:01)
--- NOTE | 2019-02-19 23:09 | Cat Scan Report ---
CT cervical spine wo con INDICATION: sp fall, neck pain. TECHNIQUE: All CT scans at this location are performed using the following dose modulation technique: Automated exposure control. COMPARISON: None available. FINDINGS: Prevertebral soft tissue measure 6 to 7 mm at the level of C2 an approximately 2.1 cm at the level of C6. Changes of prior discectomy and fusion at C3-4 noted. There is some degenerative change at C2-3 and at C5-6 and C6-7. No fracture or subluxation is seen. There is mild close thickening in the sphenoid sinus. IMPRESSION: 1. No fracture or subluxation is seen. Postoperative changes are noted. Prevertebral soft tissues are upper limits of normal. Degenerative changes are noted. Signer Name: Ki Guillory MD Signed: 02/19/2019 11:04 PM Workstation Name: [id number]
[2019-02-20] MEDS: TYLENOL PO SCH ×4 (01:40→19:04)
[2019-02-20 04:53] LABS: Basophils % (Auto) 0.6 % (0.0-1.8); Eosinophils # (Auto) 0.3 K/mm3 (0.0-0.4); Hematocrit 31.5 % (30.3-42.9); Hemoglobin 10.9 gm/dl (10.1-14.3); Lymphocytes % (Auto) 36.8 % (13.4-35.0); Mean Corpuscular HGB Conc 34 % (30-34); Mean Corpuscular Volume 94 fl (79-97); Monocytes # (Auto) 0.3 K/mm3 (0.0-0.8); Monocytes % (Auto) 5.5 % (0.0-7.3); Platelet Count 224 K/mm3 (140-440); Red Blood Count 3.34 M/mm3 (3.65-5.03); Red Cell Distribution Width 13.1 % (13.2-15.2)
[2019-02-20 05:08] LABS: BUN/Creatinine Ratio 10; Blood Urea Nitrogen 6 mg/dL (7-17); Calcium 7.9 mg/dL (8.4-10.2); Hemolysis Index 3
[2019-02-20] MEDS: ROXICODONE PO PRN (05:55)
[2019-02-20] MEDS: XANAX PO SCH ×5 (05:55→23:34)
[2019-02-20] MEDS: NACL 0.9% IR SCH (05:59)
--- NOTE | 2019-02-20 06:35 | Event Note ---
Date: 02/20/19 potassium 2.9 this am; ordered IV potassium replacement. repeat K labs after completion of IV replacement.
[2019-02-20] MEDS: KCL 10MEQ/100ML 10 MEQ/100 ML BAG IV SCH ×8 (08:25→18:07)
--- NOTE | 2019-02-20 09:29 | XRay Report ---
ABDOMINAL SERIES WITH CHEST X-RAY ONE VIEW HISTORY: Small bowel obstruction FINDINGS: Compared to the small bowel series performed yesterday. Supine and upright views of the abd omen demonstrate the contrast agent from recent small bowel follow-through has advanced into the colo n. Small bowel dilatation has further decreased and has nearly resolved. Contrast outlines a normal-a ppearing colon. The appendix is not identified. No free air or large air-fluid levels. Single view of the chest is unremarkable. The nasogastric tube has been removed. IMPRESSION: Oral contrast from recent small bowel follow-through has advanced into the colon. Small bowel obstruc tion pattern has essentially resolved. Signer Name: Evangelist Coughlin Jr, MD Signed: 02/20/2019 9:25 AM Workstation Name: [id number]
--- NOTE | 2019-02-20 09:50 | Progress Note ---
Assessment and Plan Pt feeling well without compl. nadir cl liq diet Abd soft, non tender Abd series - slightly dilated small proximal small bowel but normal transit time to cecum imp - clinically and radiographically improved partial sbo significant hypokalemia rec correction of low K stay on strict cl liq diet for next few days with 2 cans of Ensure plus supplementation to allow bowel dilation and edema to continue resolving. May d/c from surg perspective if pt continues nadir cl liq diet well, once hypokalemia is corrected. rto Tuesday. will reasses at that point and slowly advance diet if pt is clinically well Selected Entries 02/19/19 02/20/19 05:51 04:47 Temperature 98.2 F 97.8 F Pulse Rate 47 L 61 Respiratory 20 18 Rate Blood Pressure 139/49 120/44 Laboratory Tests 02/20/19 02/20/19 04:14 04:14 WBC 5.5 Hgb 10.9 Hct 31.5 Potassium 2.9 L* Objective Vital Signs - 12hr 02/19/19 02/20/19 22:00 04:47 Temperature 97.8 F Pulse Rate 61 Pulse Rate [ 47 L Apical] Respiratory 18 Rate Blood Pressure 120/44 O2 Sat by Pulse 94 Oximetry - Labs 02/20/19 04:14 02/20/19 04:14 Diabetes panel 02/19/19 02/19/19 02/20/19 Range/Units 15:20 15:20 04:14 Sodium 141 144 (137-145) mmol/L Potassium 3.4 L 2.9 L* (3.6-5.0) mmol/L Chloride 107.0 109.3 H (98-107) mmol/L Carbon Dioxide 21 L 24 (22-30) mmol/L BUN 11 6 L (7-17) mg/dL Creatinine 0.6 L 0.6 L (0.7-1.2) mg/dL Glucose 167 H 115 H (65-100) mg/dL Hemoglobin A1c 6.6 H (4-6) % Calcium 8.4 7.9 L (8.4-10.2) mg/dL Thyroid panel 02/19/19 Range/Units 15:20 TSH 1.690 (0.270-4.200) mlU/mL Calcium panel 02/19/19 02/20/19 Range/Units 15:20 04:14 Calcium 8.4 7.9 L (8.4-10.2) mg/dL Pituitary panel 02/19/19 02/19/19 02/20/19 Range/Units 15:20 15:20 04:14 Sodium 141 144 (137-145) mmol/L Potassium 3.4 L 2.9 L* (3.6-5.0) mmol/L Chloride 107.0 109.3 H (98-107) mmol/L Carbon Dioxide 21 L 24 (22-30) mmol/L BUN 11 6 L (7-17) mg/dL Creatinine 0.6 L 0.6 L (0.7-1.2) mg/dL Glucose 167 H 115 H (65-100) mg/dL Calcium 8.4 7.9 L (8.4-10.2) mg/dL TSH 1.690 (0.270-4.200) mlU/mL Adrenal panel 02/19/19 02/20/19 Range/Units 15:20 04:14 Sodium 141 144 (137-145) mmol/L Potassium 3.4 L 2.9 L* (3.6-5.0) mmol/L Chloride 107.0 109.3 H (98-107) mmol/L Carbon Dioxide 21 L 24 (22-30) mmol/L BUN 11 6 L (7-17) mg/dL Creatinine 0.6 L 0.6 L (0.7-1.2) mg/dL Glucose 167 H 115 H (65-100) mg/dL Calcium 8.4 7.9 L (8.4-10.2) mg/dL
[2019-02-20] MEDS ORDERED: MINERAL OIL PO ONE (10:30)
[2019-02-20] MEDS: BUSPAR PO SCH ×3 (10:56→23:35)
[2019-02-20] MEDS: celeXA PO SCH (11:01)
[2019-02-20] MEDS: CLARITIN PO SCH ×2 (11:02→23:34)
[2019-02-20] MEDS: THERAGRAN Tab PO SCH (11:04)
[2019-02-20] MEDS: BABY ASPIRIN PO SCH (11:05)
[2019-02-20] MEDS: PROTONIX PO SCH ×2 (11:05→23:34)
[2019-02-20] MEDS: VITAMIN B-12 PO SCH (11:05)
[2019-02-20] MEDS: MOBIC PO SCH (11:06)
[2019-02-20] MEDS: DEEP SEA NS SCH ×3 (11:06→19:04)
[2019-02-20] MEDS ORDERED: POTASSIUM CHLORIDE PO ONE (12:00)
[2019-02-20] MEDS: MORPHINE IV PRN ×3 (12:43→19:22)
--- NOTE | 2019-02-20 14:01 | Progress Note ---
Assessment and Plan Assessment and plan: 53-year-old woman who presents to the hospital with abdominal pain distention nausea and vomiting. Has history of section over 20 years ago. Small bowel obstruction Continue NG tube to suction, general surgery input appreciated, status post mineral oil. SBFT showed partial obstruction with normal transit time of contrast. started clear liquid diet with no carbonated beverages per rec from [facility], full liquid for diner GI bleed ruled out, hemoglobin stable, she had dark bilious output from her NG tube, nursing staff and patient reassured Bradycardia Patient takes fentanyl patch and benzodiazepines at home. Therefore they should not be causing bradycardia in this patient of the of her chronic meds. Fentanyl patch has been cut in half, patient still bradycardic. She has severe anxiety does not want to have benzodiazepines help. Echo shows decreased EF, cardiology consulted. Awaiting further recommendations from cardiology, check TSH Chronic systolic CHF echo shows EF of 35%. Patient denies history of heart failure. Cardiology input appreciated, patient likely needs coronary risk stratification in form of possible stress test prior to discharge Hypokalemia Repleted IV Anxiety disorder cont home meds. 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 previous fusion of C3-C4 CT cervical spine; no fracture or subluxation, postoperative changes, degenerative changes Precautions, PT /OT Possible home health versus at discharge when medically stable DVT prophylaxis ; Lovenox History Interval history: Patient seen and examined this morning medical records reviewed Patient complains of some abdominal pain Surgery recommended liquid diet at the bedside complaints this patient is unable to sleep getting the night Review home medication list and it just as needed Patient is comfortable vital signs reviewed Hospitalist Physical - Constitutional Vitals: Temp Pulse Resp BP Pulse Ox 98.3 F 59 L 20 165/85 96 02/20/19 12:13 02/20/19 12:13 02/20/19 12:13 02/20/19 12:13 02/20/19 12:13 General appearance: Present: no acute distress, well-nourished, obese (morbidly obese) - EENT Eyes: Present: PERRL, EOM intact - Neck Neck: Present: supple, normal ROM - Respiratory Respiratory effort: normal Respiratory: bilateral: diminished, negative: rales, rhonchi, wheezing - Cardiovascular Rhythm: regular Heart Sounds: Present: S1 & S2 - Extremities Extremities: no ischemia, No edema - Abdominal General gastrointestinal: soft, non-tender, non-distended, normal bowel sounds - Integumentary Integumentary: Present: clear, warm - Psychiatric Psychiatric: appropriate mood/affect, cooperative - Neurologic Neurologic: CNII-XII intact, moves all extremities Results - Labs CBC & Chem 7: 02/20/19 04:14 02/20/19 18:35 Labs: Laboratory Last Values WBC 5.5 K/mm3 (4.5-11.0) 02/20/19 04:14 RBC 3.34 M/mm3 (3.65-5.03) L 02/20/19 04:14 Hgb 10.9 gm/dl (10.1-14.3) 02/20/19 04:14 Hct 31.5 % (30.3-42.9) 02/20/19 04:14 MCV 94 fl (79-97) 02/20/19 04:14 MCH 33 pg (28-32) H 02/20/19 04:14 MCHC 34 % (30-34) 02/20/19 04:14 RDW 13.1 % (13.2-15.2) L 02/20/19 04:14 Plt Count 224 K/mm3 (140-440) 02/20/19 04:14 Lymph % (Auto) 36.8 % (13.4-35.0) H 02/20/19 04:14 [place] % (Auto) 5.5 % (0.0-7.3) 02/20/19 04:14 Eos % (Auto) 5.0 % (0.0-4.3) H 02/20/19 04:14 Baso % (Auto) 0.6 % (0.0-1.8) 02/20/19 04:14 Lymph # 2.0 K/mm3 (1.2-5.4) 02/20/19 04:14 [place] # 0.3 K/mm3 (0.0-0.8) 02/20/19 04:14 Eos # 0.3 K/mm3 (0.0-0.4) 02/20/19 04:14 Baso # 0.0 K/mm3 (0.0-0.1) 02/20/19 04:14 Seg Neutrophils % 52.1 % (40.0-70.0) 02/20/19 04:14 Seg Neutrophils # 2.9 K/mm3 (1.8-7.7) 02/20/19 04:14 Sodium 144 mmol/L (137-145) 02/20/19 04:14 Potassium 2.9 mmol/L (3.6-5.0) L* 02/20/19 12:41 Chloride 109.3 mmol/L (98-107) H 02/20/19 04:14 Carbon Dioxide 24 mmol/L (22-30) 02/20/19 04:14 Anion Gap 14 mmol/L 02/20/19 04:14 BUN 6 mg/dL (7-17) L 02/20/19 04:14 Creatinine 0.6 mg/dL (0.7-1.2) L 02/20/19 04:14 Estimated GFR > 60 ml/min 02/20/19 04:14 BUN/Creatinine Ratio 10 % 02/20/19 04:14 Glucose 115 mg/dL (65-100) H 02/20/19 04:14 POC Glucose 135 (70-105) H 02/18/19 11:10 Hemoglobin A1c 6.6 % (4-6) H 02/19/19 15:20 Calcium 7.9 mg/dL (8.4-10.2) L 02/20/19 04:14 Phosphorus 2.50 mg/dL (2.5-4.5) 02/17/19 07:47 Magnesium 1.90 mg/dL (1.7-2.3) 02/20/19 12:41 Total Bilirubin 0.70 mg/dL (0.1-1.2) 02/14/19 16:15 AST 29 units/L (5-40) 02/14/19 16:15 ALT 23 units/L (7-56) 02/14/19 16:15 Alkaline Phosphatase 95 units/L (35-129) 02/14/19 16:15 Total Creatine Kinase 33 units/L (30-135) 02/18/19 05:43 CK-MB (CK-2) < 1.0 ng/mL (0.0-4.0) 02/18/19 05:43 CK-MB (CK-2) Rel Index 3.0 (0-4) 02/18/19 05:43 Troponin T < 0.010 ng/mL (0.00-0.029) 02/18/19 05:43 Total Protein 6.4 g/dL (6.3-8.2) 02/14/19 16:15 Albumin 3.6 g/dL (3.9-5) L 02/14/19 16:15 Albumin/Globulin Ratio 1.3 % 02/14/19 16:15 Lipase 13 units/L (13-60) 02/14/19 16:15 TSH 1.690 mlU/mL (0.270-4.200) 02/19/19 15:20 Urine Color Yellow (Yellow) 02/14/19 Unknown Urine Turbidity Clear (Clear) 02/14/19 Unknown Urine pH 5.0 (5.0-7.0) 02/14/19 Unknown Ur Specific [place] 1.055 (1.003-1.030) H 02/14/19 Unknown Urine Protein <15 mg/dl mg/dL (Negative) 02/14/19 Unknown Urine Glucose (UA) Neg mg/dL (Negative) 02/14/19 Unknown Urine Ketones Tr mg/dL (Negative) 02/14/19 Unknown Urine Blood Neg (Negative) 02/14/19 Unknown Urine Nitrite Neg (Negative) 02/14/19 Unknown Urine Bilirubin Neg (Negative) 02/14/19 Unknown Urine Urobilinogen 2.0 mg/dL (<2.0) 02/14/19 Unknown Ur Leukocyte Esterase Neg (Negative) 02/14/19 Unknown Urine WBC (Auto) 1.0 /HPF (0.0-6.0) 02/14/19 Unknown Urine RBC (Auto) 1.0 /HPF (0.0-6.0) 02/14/19 Unknown Urine Mucus Few /HPF 02/14/19 Unknown Active Medications - Current Medications Current Medications: Generic Name Dose Route Start Last Admin Trade Name Freq PRN Reason Stop Dose Admin Acetaminophen 650 mg 02/14/19 22:54 Tylenol [place] Q4H PRN Fever >101 Acetaminophen 650 mg 02/19/19 18:00 02/20/19 13:27 Tylenol PO Not Given Q6HR JUAN Alprazolam 1 mg 02/19/19 18:00 02/20/19 11:07 Xanax PO 1 mg 0600,1000,1400,1800 JUAN Administration Alprazolam 2 mg 02/19/19 22:00 02/19/19 21:06 Xanax PO 2 mg HS JUAN Administration Aspirin 81 mg 02/19/19 10:00 02/20/19 11:05 Baby Aspirin PO 81 mg QDAY JUAN Administration Buspirone HCl 15 mg 02/18/19 14:00 02/20/19 10:56 Buspar PO Not Given TID JUAN Citalopram Hydrobromide 40 mg 02/19/19 10:00 02/20/19 11:01 Celexa PO 40 mg DAILY JUAN Administration Cyanocobalamin 1,000 mcg 02/19/19 10:00 02/20/19 11:05 Vitamin B-12 PO 1,000 mcg QDAY JUAN Administration Dextrose 50 ml 02/15/19 05:24 D50w (25gm) Syringe IV PRN PRN Hypoglycemia Enoxaparin Sodium 40 mg 02/16/19 22:00 02/19/19 21:06 Lovenox SUB-Q 40 mg QDAY@2200 JUAN Administration Fentanyl 12 mcg 02/18/19 13:00 02/18/19 18:52 Duragesic TD 12 mcg Q72HR JUAN Administration Sodium Chloride 1,000 mls @ 125 mls/hr 02/14/19 23:00 02/19/19 22:01 Nacl 0.9% 1000 Ml IV 125 mls/hr DIRECT JUAN Administration Potassium Chloride 10 meq in 100 mls @ 100 mls/hr 02/20/19 14:00 02/20/19 13:28 Kcl 10meq/100ml IV 02/20/19 17:59 Not Given Q1H JUAN Loratadine 10 mg 02/18/19 22:00 02/20/19 11:02 Claritin PO 10 mg BID JUAN Administration Lorazepam 1 mg 02/15/19 14:28 02/18/19 12:04 Ativan IV 1 mg Q4H PRN Administration Anxiety Meloxicam 15 mg 02/19/19 10:00 02/20/19 11:06 Mobic PO 15 mg QDAY JUAN Administration Morphine Sulfate 2 mg 02/14/19 22:53 02/20/19 12:43 Morphine IV 2 mg Q3H PRN Administration Pain, Moderate (4-6) Multivitamins 1 each 02/19/19 10:00 02/20/19 11:04 Theragran Tab PO 1 each DAILY JUAN Administration Ondansetron HCl 4 mg 02/14/19 22:53 02/18/19 08:01 Zofran IV 4 mg Q8H PRN Administration Nausea And Vomiting Oxycodone HCl 10 mg 02/19/19 14:30 02/20/19 05:55 Roxicodone PO 10 mg Q6H PRN Administration Pain, Moderate (4-6) Pantoprazole Sodium 40 mg 02/20/19 10:00 02/20/19 11:05 Protonix PO 40 mg BID JUAN Administration Phenol 1 spray 02/16/19 19:31 02/16/19 21:00 Chloraseptic MM 1 spray Q2H PRN Administration Sore Throat Pravastatin Sodium 80 mg 02/18/19 22:00 02/19/19 21:06 Pravachol PO 80 mg QHS JUAN Administration Senna/Docusate Sodium 1 tab 02/18/19 12:54 Senokot S PO BID PRN Constipation Sodium Chloride 1 spray 02/17/19 14:00 02/20/19 11:06 [place] NS 1 spray QID JUAN Administration Tizanidine HCl 6 mg 02/19/19 14:30 02/19/19 21:04 Zanaflex PO 6 mg Q8H PRN Administration Muscle Spasm Trazodone HCl 150 mg 02/18/19 22:00 02/19/19 21:05 Desyrel PO 150 mg QHS JUAN Administration
--- NOTE | 2019-02-20 14:56 | Consultation ---
History of Present Illness Consult date: 02/20/19 Consult reason: bradycardia History of present illness: This is a 53-year old woman whom is admitted with partial small bowel obstruction, managed conservatively. A cardiac consultation has been requested for sinus bradycardia. Telemetry strips shows evidence of sinus bradycardia with rate ranging 40s to mid 50s. Patient remained asymptomatic. Blood pressure has remained stable. TSH is normal. Currently, sinus rhythm, rate 71 on telemetry. Patient is known to [facility] and follows with Dr Quijano on a routine basis. She has a history of nonischemic cardiomyopathy by recent cardiac cath that revealed no significant coronary artery disease, ejection fraction 35-40%. Co- morbidities includes hypertension, obesity and anxiety. Past History Social history: smoking. denies: alcohol abuse Medications and Allergies Allergies Allergy/AdvReac Type Severity Reaction Status Date / Time Penicillins Allergy Severe ANIPHYLACTIC Verified 01/15/13 11:20 SHOCK black cohosh [Black Cohosh] Allergy Unknown Verified 09/19/13 01:52 diphenhydramine HCl AdvReac Severe INTERACTS Verified 01/15/13 11:20 [From Benadryl] WITH OTHER MEDS, CRAZY gabapentin [From Neurontin] AdvReac Severe CRAZY Verified 01/15/13 11:20 ketorolac tromethamine AdvReac Severe VOMITTING Verified 01/15/13 11:20 [From Toradol] pregabalin [From Lyrica] AdvReac Severe CRAZY Verified 01/15/13 11:20 venom-honey bee AdvReac Anaphylaxis Verified 01/15/13 11:21 COCONUT AdvReac Severe Itching Uncoded 01/15/13 11:20 Home Medications Medication Instructions Recorded Confirmed Last Taken Type ALPRAZolam [Xanax TAB] 2 mg PO QID 01/15/13 02/14/19 02/13/19 History Aspirin [Aspirin BABY CHEW TAB] 81 mg PO QDAY 01/15/13 02/14/19 02/13/19 History Baclofen 10 mg PO QID 01/15/13 02/14/19 02/13/19 History Citalopram Hydrobromide [celeXA] 40 mg PO DAILY 01/15/13 02/14/19 02/13/19 History Dexlansoprazole [Dexilant] 60 mg PO QDAY 01/15/13 02/14/19 02/13/19 History Furosemide [Lasix TAB] 40 mg PO BID 01/15/13 02/14/19 02/13/19 History Trazodone HCl [Trazodone] 300 mg PO QHS 01/15/13 02/20/19 02/13/19 History busPIRone [Buspar] 15 mg PO TID 01/15/13 02/14/19 02/13/19 History Glimepiride 2 mg PO BID 09/20/13 02/14/19 02/13/19 History Multivitamin [Multi-Vitamin Daily] 1 tab PO DAILY 09/20/13 02/14/19 02/13/19 History Potassium Chloride 20 meq PO BID 09/20/13 02/14/19 02/13/19 History Sennosides/Docusate Sodium [Stool 2 cap PO BID 09/20/13 02/14/19 02/13/19 History Softener-Stim Lax Tablet] Cyanocobalamin (Vitamin B-12) 500 mcg SL QDAY 01/21/15 02/14/19 02/13/19 History [Vitamin B-12] Loratadine [Claritin] 10 mg PO BID 01/21/15 02/14/19 02/13/19 History Lovastatin [Altoprev] 40 mg PO QDAY 01/21/15 02/14/19 02/13/19 History Meloxicam [Mobic] 15 mg PO QDAY 01/21/15 02/14/19 02/13/19 History Oxycodone HCl/Acetaminophen 1 each PO TID PRN 01/21/15 02/14/19 02/13/19 History [Endocet 2.5-325 mg Tablet] fentaNYL [Fentanyl] 25 mcg TD Q72HR 01/21/15 02/16/19 02/13/19 History Zolpidem 10 mg PO HS 02/20/19 02/20/19 Unknown History Active Meds: Active Medications Acetaminophen (Tylenol) 650 mg [place] Q4H PRN PRN Reason: Fever >101 Acetaminophen (Tylenol) 650 mg PO Q6HR [facility]UAN Last Admin: 02/20/19 13:27 Dose: Not Given Documented by: Alprazolam (Xanax) 1 mg PO 0600,1000,1400,1800 [facility] Last Admin: 02/20/19 14:14 Dose: 1 mg Documented by: Alprazolam (Xanax) 2 mg PO HS [facility] Last Admin: 02/19/19 21:06 Dose: 2 mg Documented by: Aspirin (Baby Aspirin) 81 mg PO QDAY [facility] Last Admin: 02/20/19 11:05 Dose: 81 mg Documented by: Buspirone HCl (Buspar) 15 mg PO TID [facility] Last Admin: 02/20/19 14:14 Dose: 15 mg Documented by: Citalopram Hydrobromide (Celexa) 40 mg PO DAILY [facility] Last Admin: 02/20/19 11:01 Dose: 40 mg Documented by: Cyanocobalamin (Vitamin B-12) 1,000 mcg PO QDAY [facility] Last Admin: 02/20/19 11:05 Dose: 1,000 mcg Documented by: Dextrose (D50w (25gm) Syringe) 50 ml IV PRN PRN PRN Reason: Hypoglycemia Enoxaparin Sodium (Lovenox) 40 mg SUB-Q QDAY@2200 [facility] Last Admin: 02/19/19 21:06 Dose: 40 mg Documented by: Fentanyl (Duragesic) 12 mcg TD Q72HR [facility] Last Admin: 02/18/19 18:52 Dose: 12 mcg Documented by: Sodium Chloride (Nacl 0.9% 1000 Ml) 1,000 mls @ 125 mls/hr IV DIRECT [facility] Last Admin: 02/19/19 22:01 Dose: 125 mls/hr Documented by: Potassium Chloride (Kcl 10meq/100ml) 10 meq in 100 mls @ 100 mls/hr IV Q1H [facility] Stop: 02/20/19 17:59 Last Admin: 02/20/19 13:28 Dose: Not Given Documented by: Loratadine (Claritin) 10 mg PO BID [facility] Last Admin: 02/20/19 11:02 Dose: 10 mg Documented by: Lorazepam (Ativan) 1 mg IV Q4H PRN PRN Reason: Anxiety Last Admin: 02/18/19 12:04 Dose: 1 mg Documented by: Meloxicam (Mobic) 15 mg PO QDAY [facility] Last Admin: 02/20/19 11:06 Dose: 15 mg Documented by: Morphine Sulfate (Morphine) 2 mg IV Q3H PRN PRN Reason: Pain, Moderate (4-6) Last Admin: 02/20/19 12:43 Dose: 2 mg Documented by: Multivitamins (Theragran Tab) 1 each PO DAILY [facility] Last Admin: 02/20/19 11:04 Dose: 1 each Documented by: Ondansetron HCl (Zofran) 4 mg IV Q8H PRN PRN Reason: Nausea And Vomiting Last Admin: 02/18/19 08:01 Dose: 4 mg Documented by: Oxycodone HCl (Roxicodone) 10 mg PO Q6H PRN PRN Reason: Pain, Moderate (4-6) Last Admin: 02/20/19 05:55 Dose: 10 mg Documented by: Pantoprazole Sodium (Protonix) 40 mg PO BID [facility] Last Admin: 02/20/19 11:05 Dose: 40 mg Documented by: Phenol (Chloraseptic) 1 spray MM Q2H PRN PRN Reason: Sore Throat Last Admin: 02/16/19 21:00 Dose: 1 spray Documented by: Pravastatin Sodium (Pravachol) 80 mg PO QHS [facility] Last Admin: 02/19/19 21:06 Dose: 80 mg Documented by: Senna/Docusate Sodium (Senokot S) 1 tab PO BID PRN PRN Reason: Constipation Sodium Chloride (Deep Sea) 1 spray NS QID [facility] Last Admin: 02/20/19 11:06 Dose: 1 spray Documented by: Tizanidine HCl (Zanaflex) 6 mg PO Q8H PRN PRN Reason: Muscle Spasm Last Admin: 02/19/19 21:04 Dose: 6 mg Documented by: Trazodone HCl (Desyrel) 150 mg PO QHS [facility] Last Admin: 02/19/19 21:05 Dose: 150 mg Documented by: Physical Examination Vital Signs Temp Pulse Resp BP Pulse Ox 98.6 F 99 H 18 127/76 94 02/14/19 14:03 02/14/19 14:03 02/14/19 14:03 02/14/19 14:03 02/14/19 14:03 General appearance: no acute distress HEENT: Positive: PERRL Neck: Positive: trachea midline Cardiac: Positive: Reg Rate and Rhythm Lungs: Positive: Decreased Breath Sounds Neuro: Positive: Grossly Intact Results 02/20/19 04:14 02/20/19 12:41 CBC 02/19/19 02/20/19 Range/Units 15:20 04:14 WBC 6.9 5.5 (4.5-11.0) K/mm3 RBC 3.44 L 3.34 L (3.65-5.03) M/mm3 Hgb 11.2 10.9 (10.1-14.3) gm/dl Hct 32.5 31.5 (30.3-42.9) % Plt Count 213 224 (140-440) K/mm3 Lymph # 1.4 2.0 (1.2-5.4) K/mm3 [place] # 0.4 0.3 (0.0-0.8) K/mm3 Eos # 0.2 0.3 (0.0-0.4) K/mm3 Baso # 0.0 0.0 (0.0-0.1) K/mm3 Comprehensive Metabolic Panel 02/19/19 02/20/19 02/20/19 Range/Units 15:20 04:14 12:41 Sodium 141 144 (137-145) mmol/L Potassium 3.4 L 2.9 L* 2.9 L* (3.6-5.0) mmol/L Chloride 107.0 109.3 H (98-107) mmol/L Carbon Dioxide 21 L 24 (22-30) mmol/L BUN 11 6 L (7-17) mg/dL Creatinine 0.6 L 0.6 L (0.7-1.2) mg/dL Glucose 167 H 115 H (65-100) mg/dL Calcium 8.4 7.9 L (8.4-10.2) mg/dL Assessment and Plan Small bowel obstruction Hypertension Sinus bradycardia, resolved likely vasovagal Nonischemic CMP, EF 35-40% Obesity Recommend: Afterload reduction agent for nonischemic cardiomyopathy. Avoid AV wendy blocking agents.
[2019-02-20] MEDS: ZOFRAN IV PRN (15:54)
[2019-02-20] MEDS ORDERED: K-DUR PO ONE (17:30)
[2019-02-20] MEDS ORDERED: DESYREL PO SCH (17:32)
[2019-02-20] MEDS ORDERED: ZOFRAN IV PRN (18:29)
[2019-02-20] MEDS: NACL 0.9% 1000 ML 1,000 ML IV SCH (20:26)
[2019-02-20] MEDS ORDERED: ZOLPIDEM 10 MG PO SCH (22:00)
[2019-02-20] MEDS: ENOXAPARIN SUB-Q SCH (23:33)
[2019-02-20] MEDS: PRAVACHOL PO SCH (23:34)
[2019-02-21] MEDS: TYLENOL PO SCH ×4 (00:05→17:15)
[2019-02-21] MEDS: ROXICODONE PO PRN (00:06)
[2019-02-21] MEDS: DEEP SEA NS SCH ×4 (00:12→18:09)
[2019-02-21] MEDS: NACL 0.9% 1000 ML 1,000 ML IV SCH (03:37)
[2019-02-21] MEDS: MORPHINE IV PRN ×2 (03:44→10:02)
[2019-02-21] MEDS: ATIVAN IV PRN (03:47)
[2019-02-21 08:57] LABS: Basophils % (Auto) 0.8 % (0.0-1.8); Eosinophils # (Auto) 0.2 K/mm3 (0.0-0.4); Eosinophils % (Auto) 3.5 % (0.0-4.3); Hematocrit 33.5 % (30.3-42.9); Hemoglobin 11.5 gm/dl (10.1-14.3); Lymphocytes # (Auto) 1.6 K/mm3 (1.2-5.4); Lymphocytes % (Auto) 32.2 % (13.4-35.0); Mean Corpuscular HGB Conc 34 % (30-34); Mean Corpuscular Volume 95 fl (79-97); Monocytes # (Auto) 0.3 K/mm3 (0.0-0.8); Monocytes % (Auto) 6.4 % (0.0-7.3); Platelet Count 230 K/mm3 (140-440); Red Blood Count 3.53 M/mm3 (3.65-5.03)
[2019-02-21 09:43] LABS: BUN/Creatinine Ratio 3; Blood Urea Nitrogen 2 mg/dL (7-17); Hemolysis Index 4
[2019-02-21] MEDS: BUSPAR PO SCH ×2 (09:56→14:00)
[2019-02-21] MEDS: PROTONIX PO SCH (09:56)
[2019-02-21] MEDS: XANAX PO SCH ×3 (09:56→18:09)
[2019-02-21] MEDS: celeXA PO SCH (09:57)
[2019-02-21] MEDS: MOBIC PO SCH (09:57)
[2019-02-21] MEDS: CLARITIN PO SCH (09:57)
[2019-02-21] MEDS: BABY ASPIRIN PO SCH (09:58)
[2019-02-21] MEDS: VITAMIN B-12 PO SCH (09:59)
[2019-02-21] MEDS: THERAGRAN Tab PO SCH (09:59)
--- NOTE | 2019-02-21 12:01 | Progress Note ---
Assessment and Plan Small bowel obstruction Hypertension Sinus bradycardia, resolved Nonischemic CMP, EF 35-40% Obesity Recommend: Continue telemetry monitoring. Avoid AV wendy blocking agents due to transient vasodepressor bradycardia. Once SBO has resolved and she is able to take oral medications, we will recommend afterload reduction agent for nonischemic cardiomyopathy. Otherwise, conservative cardiac management. Subjective Date of service: 02/21/19 Interval history: Patient is resting in bed comfortably. She has no cardiac complaints. Stable sinus rhythm, rate 71 on telemetry. Objective Vital Signs Temp Pulse Resp BP Pulse Ox 02/21/19 10:02 20 02/21/19 09:57 20 02/21/19 06:46 98.0 F 78 18 132/68 89 02/21/19 00:02 97.7 F 65 18 144/72 96 02/20/19 12:13 98.3 F 59 L 20 165/85 96 - Physical Examination General: No Apparent Distress HEENT: Positive: PERRL Neck: Positive: trachea midline Cardiac: Positive: Reg Rate and Rhythm Lungs: Positive: Decreased Breath Sounds Neuro: Positive: Grossly Intact - Labs and Meds CBC 02/21/19 Range/Units 08:41 WBC 5.0 (4.5-11.0) K/mm3 RBC 3.53 L (3.65-5.03) M/mm3 Hgb 11.5 (10.1-14.3) gm/dl Hct 33.5 (30.3-42.9) % Plt Count 230 (140-440) K/mm3 Lymph # 1.6 (1.2-5.4) K/mm3 [place] # 0.3 (0.0-0.8) K/mm3 Eos # 0.2 (0.0-0.4) K/mm3 Baso # 0.0 (0.0-0.1) K/mm3 Comprehensive Metabolic Panel 02/20/19 02/20/19 02/21/19 Range/Units 12:41 18:35 08:41 Sodium 142 (137-145) mmol/L Potassium 2.9 L* 3.8 D 3.2 L (3.6-5.0) mmol/L Chloride 109.0 H (98-107) mmol/L Carbon Dioxide 21 L (22-30) mmol/L BUN 2 L (7-17) mg/dL Creatinine 0.6 L (0.7-1.2) mg/dL Glucose 106 H (65-100) mg/dL Calcium 8.0 L (8.4-10.2) mg/dL
--- NOTE | 2019-02-21 12:03 | Consultation ---
History of Present Illness - Reason for Consult Consult date: 02/21/19 Reason for consult: Initial Psychiatric Evaluation - History of Present Psychiatric Illness Patient is a 53-year-old female presents to the emergency department with complaint of some abdominal cramping pain, nausea, vomiting and shaking for the past 3-4 days. She has not taken anything for her symptoms secondary to the nausea and vomiting. Psychiatry was consulted due to patient's psychiatric history. At this time patient is irritated. Patient is being assessed by the hospitalist and physical therapy. Provider unable to obtain assessment. Also, patient is awaiting environmental services due to urinating /having a bowel movement on the floor. Current Psychiatric Medications: Unable to assess. Past Psychiatric History: Unable to assess. Past Medication Trial: Unable to assess. History of Trauma/Abuse: Unable to assess. History of Drugs/Alcohol: Unable to assess. Social History: Unable to assess. Family History of Psychiatric Illness and Substance Abuse: Unable to assess. Medications and Allergies Allergies Allergy/AdvReac Type Severity Reaction Status Date / Time Penicillins Allergy Severe ANIPHYLACTIC Verified 01/15/13 11:20 SHOCK black cohosh [Black Cohosh] Allergy Unknown Verified 09/19/13 01:52 diphenhydramine HCl AdvReac Severe INTERACTS Verified 01/15/13 11:20 [From Benadryl] WITH OTHER MEDS, CRAZY gabapentin [From Neurontin] AdvReac Severe CRAZY Verified 01/15/13 11:20 ketorolac tromethamine AdvReac Severe VOMITTING Verified 01/15/13 11:20 [From Toradol] pregabalin [From Lyrica] AdvReac Severe CRAZY Verified 01/15/13 11:20 venom-honey bee AdvReac Anaphylaxis Verified 01/15/13 11:21 COCONUT AdvReac Severe Itching Uncoded 01/15/13 11:20 Home Medications Medication Instructions Recorded Confirmed Last Taken Type ALPRAZolam [Xanax TAB] 2 mg PO QID 01/15/13 02/14/19 02/13/19 History Aspirin [Aspirin BABY CHEW TAB] 81 mg PO QDAY 01/15/13 02/14/19 02/13/19 History Baclofen 10 mg PO QID 01/15/13 02/14/19 02/13/19 History Citalopram Hydrobromide [celeXA] 40 mg PO DAILY 01/15/13 02/14/19 02/13/19 History Dexlansoprazole [Dexilant] 60 mg PO QDAY 01/15/13 02/14/19 02/13/19 History Furosemide [Lasix TAB] 40 mg PO BID 01/15/13 02/14/19 02/13/19 History Trazodone HCl [Trazodone] 300 mg PO QHS 01/15/13 02/20/19 02/13/19 History busPIRone [Buspar] 15 mg PO TID 01/15/13 02/14/19 02/13/19 History Glimepiride 2 mg PO BID 09/20/13 02/14/19 02/13/19 History Multivitamin [Multi-Vitamin Daily] 1 tab PO DAILY 09/20/13 02/14/19 02/13/19 History Potassium Chloride 20 meq PO BID 09/20/13 02/14/19 02/13/19 History Sennosides/Docusate Sodium [Stool 2 cap PO BID 09/20/13 02/14/19 02/13/19 History Softener-Stim Lax Tablet] Cyanocobalamin (Vitamin B-12) 500 mcg SL QDAY 01/21/15 02/14/19 02/13/19 History [Vitamin B-12] Loratadine [Claritin] 10 mg PO BID 01/21/15 02/14/19 02/13/19 History Lovastatin [Altoprev] 40 mg PO QDAY 01/21/15 02/14/19 02/13/19 History Meloxicam [Mobic] 15 mg PO QDAY 01/21/15 02/14/19 02/13/19 History Oxycodone HCl/Acetaminophen 1 each PO TID PRN 01/21/15 02/14/19 02/13/19 History [Endocet 2.5-325 mg Tablet] fentaNYL [Fentanyl] 25 mcg TD Q72HR 01/21/15 02/16/19 02/13/19 History Zolpidem 10 mg PO HS 02/20/19 02/20/19 Unknown History Active Meds: Active Medications Acetaminophen (Tylenol) 650 mg [place] Q4H PRN PRN Reason: Fever >101 Acetaminophen (Tylenol) 650 mg PO Q6HR [facility] Last Admin: 02/21/19 03:38 Dose: 650 mg Documented by: Alprazolam (Xanax) 1 mg PO 0600,1000,1400,1800 [facility] Last Admin: 02/21/19 09:56 Dose: 1 mg Documented by: Alprazolam (Xanax) 2 mg PO HS [facility] Last Admin: 02/20/19 23:34 Dose: 2 mg Documented by: Aspirin (Baby Aspirin) 81 mg PO QDAY [facility] Last Admin: 02/21/19 09:58 Dose: 81 mg Documented by: Buspirone HCl (Buspar) 15 mg PO TID [facility] Last Admin: 02/21/19 09:56 Dose: 15 mg Documented by: Citalopram Hydrobromide (Celexa) 40 mg PO DAILY [facility] Last Admin: 02/21/19 09:57 Dose: 40 mg Documented by: Cyanocobalamin (Vitamin B-12) 1,000 mcg PO QDAY [facility] Last Admin: 02/21/19 09:59 Dose: 1,000 mcg Documented by: Dextrose (D50w (25gm) Syringe) 50 ml IV PRN PRN PRN Reason: Hypoglycemia Enoxaparin Sodium (Lovenox) 40 mg SUB-Q QDAY@2200 [facility] Last Admin: 02/20/19 23:33 Dose: 40 mg Documented by: Fentanyl (Duragesic) 12 mcg TD Q72HR [facility] Last Admin: 02/18/19 18:52 Dose: 12 mcg Documented by: Sodium Chloride (Nacl 0.9% 1000 Ml) 1,000 mls @ 125 mls/hr IV DIRECT [facility] Last Admin: 02/21/19 03:37 Dose: 125 mls/hr Documented by: Loratadine (Claritin) 10 mg PO BID [facility] Last Admin: 02/21/19 09:57 Dose: 10 mg Documented by: Lorazepam (Ativan) 1 mg IV Q4H PRN PRN Reason: Anxiety Last Admin: 02/21/19 03:47 Dose: 1 mg Documented by: Meloxicam (Mobic) 15 mg PO QDAY [facility] Last Admin: 02/21/19 09:57 Dose: 15 mg Documented by: Morphine Sulfate (Morphine) 2 mg IV Q3H PRN PRN Reason: Pain, Moderate (4-6) Last Admin: 02/21/19 10:02 Dose: 2 mg Documented by: Multivitamins (Theragran Tab) 1 each PO DAILY [facility] Last Admin: 02/21/19 09:59 Dose: 1 each Documented by: Ondansetron HCl (Zofran) 4 mg IV Q4H PRN PRN Reason: Nausea And Vomiting Last Admin: 02/20/19 19:19 Dose: 4 mg Documented by: Oxycodone HCl (Roxicodone) 10 mg PO Q6H PRN PRN Reason: Pain, Moderate (4-6) Last Admin: 02/21/19 00:06 Dose: 10 mg Documented by: Pantoprazole Sodium (Protonix) 40 mg PO BID [facility] Last Admin: 02/21/19 09:56 Dose: 40 mg Documented by: Phenol (Chloraseptic) 1 spray MM Q2H PRN PRN Reason: Sore Throat Last Admin: 02/16/19 21:00 Dose: 1 spray Documented by: Pravastatin Sodium (Pravachol) 80 mg PO QHS [facility] Last Admin: 02/20/19 23:34 Dose: 80 mg Documented by: Senna/Docusate Sodium (Senokot S) 1 tab PO BID PRN PRN Reason: Constipation Sodium Chloride (Deep Sea) 1 spray NS QID [facility] Last Admin: 02/21/19 09:58 Dose: 1 spray Documented by: Tizanidine HCl (Zanaflex) 6 mg PO Q8H PRN PRN Reason: Muscle Spasm Last Admin: 02/19/19 21:04 Dose: 6 mg Documented by: Trazodone HCl (Desyrel) 300 mg PO QHS [facility] Last Admin: 02/20/19 23:42 Dose: 300 mg Documented by: Zolpidem Tartrate (Ambien) 10 mg PO QHS [facility] Mental Status Exam - Vital signs Last Vital Signs Temp 98.0 F 02/21/19 06:46 Pulse 78 02/21/19 06:46 Resp 20 02/21/19 10:02 BP 132/68 02/21/19 06:46 Pulse Ox 89 02/21/19 06:46 - Exam Narrative exam: Unable to assess patient due to current condition. Results Result Diagrams: 02/21/19 08:41 02/21/19 08:41 Abnormal lab results 02/20/19 02/21/19 02/21/19 Range/Units 12:41 08:41 08:41 RBC 3.53 L (3.65-5.03) M/mm3 MCH 33 H (28-32) pg RDW 13.0 L (13.2-15.2) % Potassium 2.9 L* 3.2 L (3.6-5.0) mmol/L Chloride 109.0 H (98-107) mmol/L Carbon Dioxide 21 L (22-30) mmol/L BUN 2 L (7-17) mg/dL Creatinine 0.6 L (0.7-1.2) mg/dL Glucose 106 H (65-100) mg/dL Calcium 8.0 L (8.4-10.2) mg/dL All other labs normal. Assessment and Plan Assessment and plan: Unable to assess patient due to current condition/situation. Will reassess patient in 24 hours.
[2019-02-21] MEDS ORDERED: K-DUR PO ONE (14:00)
--- NOTE | 2019-02-21 14:35 | Progress Note ---
Assessment and Plan Assessment and plan: 53-year-old woman who presents to the hospital with abdominal pain distention nausea and vomiting. Has history of section over 20 years ago. Workup is consistent with small bowel obstruction, patient received NG tube suction and nothing by mouth status, evaluate by surgery Serial x-rays show significant improvement, surgery started on clear liquids which patient is tolerating Small bowel obstruction Continue NG tube to suction, general surgery input appreciated, status post mineral oil. SBFT showed partial obstruction with normal transit time of contrast. started clear liquid diet with no carbonated beverages per rec from [facility], full liquid for diner GI bleed ruled out, hemoglobin stable, she had dark bilious output from her NG tube, nursing staff and patient reassured Bradycardia Patient takes fentanyl patch and benzodiazepines at home. Therefore they should not be causing bradycardia in this patient of the of her chronic meds. Fentanyl patch has been cut in half, patient still bradycardic. She has severe anxiety does not want to have benzodiazepines help. Echo shows decreased EF, cardiology consulted. Awaiting further recommendations from cardiology, check TSH Chronic systolic CHF echo shows EF of 35%. Patient denies history of heart failure. Cardiology input appreciated, patient likely needs coronary risk stratification in form of possible stress test prior to discharge Hypokalemia Repleted IV Anxiety disorder cont home meds. 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 previous fusion of C3-C4 CT cervical spine; no fracture or subluxation, postoperative changes, degenerative changes Precautions, PT /OT Possible home health versus at discharge when medically stable DVT prophylaxis ; Lovenox History Interval history: Patient seen and examined medical records reviewed Patient feels slightly better had bowel movement Tolerating clear liquid diet X-ray abdomen yesterday show complete resolution of SBO Patient complains of generalized weakness Working with physical therapy Vital signs noted Hospitalist Physical - Constitutional Vitals: Temp Pulse Resp BP Pulse Ox 98.2 F 76 18 131/72 93 02/21/19 11:33 02/21/19 11:33 02/21/19 11:33 02/21/19 11:33 02/21/19 11:33 General appearance: Present: no acute distress, well-nourished, obese (morbidly obese) - EENT Eyes: Present: PERRL, EOM intact - Neck Neck: Present: supple, normal ROM - Respiratory Respiratory effort: normal Respiratory: bilateral: diminished, negative: rales, rhonchi, wheezing - Cardiovascular Rhythm: regular Heart Sounds: Present: S1 & S2 - Extremities Extremities: no ischemia, No edema - Abdominal General gastrointestinal: soft, non-tender, non-distended, normal bowel sounds - Integumentary Integumentary: Present: clear, warm - Psychiatric Psychiatric: appropriate mood/affect, cooperative - Neurologic Neurologic: moves all extremities Results - Labs CBC & Chem 7: 02/21/19 08:41 02/21/19 08:41 Labs: Laboratory Last Values WBC 5.0 K/mm3 (4.5-11.0) 02/21/19 08:41 RBC 3.53 M/mm3 (3.65-5.03) L 02/21/19 08:41 Hgb 11.5 gm/dl (10.1-14.3) 02/21/19 08:41 Hct 33.5 % (30.3-42.9) 02/21/19 08:41 MCV 95 fl (79-97) 02/21/19 08:41 MCH 33 pg (28-32) H 02/21/19 08:41 MCHC 34 % (30-34) 02/21/19 08:41 RDW 13.0 % (13.2-15.2) L 02/21/19 08:41 Plt Count 230 K/mm3 (140-440) 02/21/19 08:41 Lymph % (Auto) 32.2 % (13.4-35.0) 02/21/19 08:41 [place] % (Auto) 6.4 % (0.0-7.3) 02/21/19 08:41 Eos % (Auto) 3.5 % (0.0-4.3) 02/21/19 08:41 Baso % (Auto) 0.8 % (0.0-1.8) 02/21/19 08:41 Lymph # 1.6 K/mm3 (1.2-5.4) 02/21/19 08:41 [place] # 0.3 K/mm3 (0.0-0.8) 02/21/19 08:41 Eos # 0.2 K/mm3 (0.0-0.4) 02/21/19 08:41 Baso # 0.0 K/mm3 (0.0-0.1) 02/21/19 08:41 Seg Neutrophils % 57.1 % (40.0-70.0) 02/21/19 08:41 Seg Neutrophils # 2.9 K/mm3 (1.8-7.7) 02/21/19 08:41 Sodium 142 mmol/L (137-145) 02/21/19 08:41 Potassium 3.2 mmol/L (3.6-5.0) L 02/21/19 08:41 Chloride 109.0 mmol/L (98-107) H 02/21/19 08:41 Carbon Dioxide 21 mmol/L (22-30) L 02/21/19 08:41 Anion Gap 15 mmol/L 02/21/19 08:41 BUN 2 mg/dL (7-17) L 02/21/19 08:41 Creatinine 0.6 mg/dL (0.7-1.2) L 02/21/19 08:41 Estimated GFR > 60 ml/min 02/21/19 08:41 BUN/Creatinine Ratio 3 % 02/21/19 08:41 Glucose 106 mg/dL (65-100) H 02/21/19 08:41 POC Glucose 135 (70-105) H 02/18/19 11:10 Hemoglobin A1c 6.6 % (4-6) H 02/19/19 15:20 Calcium 8.0 mg/dL (8.4-10.2) L 02/21/19 08:41 Phosphorus 2.50 mg/dL (2.5-4.5) 02/17/19 07:47 Magnesium 1.80 mg/dL (1.7-2.3) 02/21/19 08:41 Total Bilirubin 0.70 mg/dL (0.1-1.2) 02/14/19 16:15 AST 29 units/L (5-40) 02/14/19 16:15 ALT 23 units/L (7-56) 02/14/19 16:15 Alkaline Phosphatase 95 units/L (35-129) 02/14/19 16:15 Total Creatine Kinase 33 units/L (30-135) 02/18/19 05:43 CK-MB (CK-2) < 1.0 ng/mL (0.0-4.0) 02/18/19 05:43 CK-MB (CK-2) Rel Index 3.0 (0-4) 02/18/19 05:43 Troponin T < 0.010 ng/mL (0.00-0.029) 02/18/19 05:43 Total Protein 6.4 g/dL (6.3-8.2) 02/14/19 16:15 Albumin 3.6 g/dL (3.9-5) L 02/14/19 16:15 Albumin/Globulin Ratio 1.3 % 02/14/19 16:15 Lipase 13 units/L (13-60) 02/14/19 16:15 TSH 1.690 mlU/mL (0.270-4.200) 02/19/19 15:20 Urine Color Yellow (Yellow) 02/14/19 Unknown Urine Turbidity Clear (Clear) 02/14/19 Unknown Urine pH 5.0 (5.0-7.0) 02/14/19 Unknown Ur Specific [place] 1.055 (1.003-1.030) H 02/14/19 Unknown Urine Protein <15 mg/dl mg/dL (Negative) 02/14/19 Unknown Urine Glucose (UA) Neg mg/dL (Negative) 02/14/19 Unknown Urine Ketones Tr mg/dL (Negative) 02/14/19 Unknown Urine Blood Neg (Negative) 02/14/19 Unknown Urine Nitrite Neg (Negative) 02/14/19 Unknown Urine Bilirubin Neg (Negative) 02/14/19 Unknown Urine Urobilinogen 2.0 mg/dL (<2.0) 02/14/19 Unknown Ur Leukocyte Esterase Neg (Negative) 02/14/19 Unknown Urine WBC (Auto) 1.0 /HPF (0.0-6.0) 02/14/19 Unknown Urine RBC (Auto) 1.0 /HPF (0.0-6.0) 02/14/19 Unknown Urine Mucus Few /HPF 02/14/19 Unknown Active Medications - Current Medications Current Medications: Generic Name Dose Route Start Last Admin Trade Name Freq PRN Reason Stop Dose Admin Acetaminophen 650 mg 02/14/19 22:54 Tylenol MN Q4H PRN Fever >101 Acetaminophen 650 mg 02/19/19 18:00 02/21/19 03:38 Tylenol PO 650 mg Q6HR JUAN Administration Alprazolam 1 mg 02/19/19 18:00 02/21/19 09:56 Xanax PO 1 mg 0600,1000,1400,1800 JUAN Administration Alprazolam 2 mg 02/19/19 22:00 02/20/19 23:34 Xanax PO 2 mg HS JUAN Administration Aspirin 81 mg 02/19/19 10:00 02/21/19 09:58 Baby Aspirin PO 81 mg QDAY JUAN Administration Buspirone HCl 15 mg 02/18/19 14:00 02/21/19 09:56 Buspar PO 15 mg TID JUAN Administration Citalopram Hydrobromide 40 mg 02/19/19 10:00 02/21/19 09:57 Celexa PO 40 mg DAILY JUAN Administration Cyanocobalamin 1,000 mcg 02/19/19 10:00 02/21/19 09:59 Vitamin B-12 PO 1,000 mcg QDAY JUAN Administration Dextrose 50 ml 02/15/19 05:24 D50w (25gm) Syringe IV PRN PRN Hypoglycemia Enoxaparin Sodium 40 mg 02/16/19 22:00 02/20/19 23:33 Lovenox SUB-Q 40 mg QDAY@2200 JUAN Administration Fentanyl 12 mcg 02/18/19 13:00 02/18/19 18:52 Duragesic TD 12 mcg Q72HR JUAN Administration Sodium Chloride 1,000 mls @ 125 mls/hr 02/14/19 23:00 02/21/19 03:37 Nacl 0.9% 1000 Ml IV 125 mls/hr DIRECT JUAN Administration Potassium Chloride 10 meq in 100 mls @ 100 mls/hr 02/21/19 15:00 Kcl 10meq/100ml IV 02/21/19 15:59 Q1H JUAN Loratadine 10 mg 02/18/19 22:00 02/21/19 09:57 Claritin PO 10 mg BID JUAN Administration Lorazepam 1 mg 02/15/19 14:28 02/21/19 03:47 Ativan IV 1 mg Q4H PRN Administration Anxiety Meloxicam 15 mg 02/19/19 10:00 02/21/19 09:57 Mobic PO 15 mg QDAY JUAN Administration Morphine Sulfate 2 mg 02/14/19 22:53 02/21/19 10:02 Morphine IV 2 mg Q3H PRN Administration Pain, Moderate (4-6) Multivitamins 1 each 02/19/19 10:00 02/21/19 09:59 Theragran Tab PO 1 each DAILY JUAN Administration Ondansetron HCl 4 mg 02/20/19 18:29 02/20/19 19:19 Zofran IV 4 mg Q4H PRN Administration Nausea And Vomiting Oxycodone HCl 10 mg 02/19/19 14:30 02/21/19 00:06 Roxicodone PO 10 mg Q6H PRN Administration Pain, Moderate (4-6) Pantoprazole Sodium 40 mg 02/20/19 10:00 02/21/19 09:56 Protonix PO 40 mg BID JUAN Administration Phenol 1 spray 02/16/19 19:31 02/16/19 21:00 Chloraseptic MM 1 spray Q2H PRN Administration Sore Throat Pravastatin Sodium 80 mg 02/18/19 22:00 02/20/19 23:34 Pravachol PO 80 mg QHS [facility] Administration Senna/Docusate Sodium 1 tab 02/18/19 12:54 Senokot S PO BID PRN Constipation Sodium Chloride 1 spray 02/17/19 14:00 02/21/19 09:58 Deep Sea NS 1 spray QID [facility] Administration Tizanidine HCl 6 mg 02/19/19 14:30 02/19/19 21:04 Zanaflex PO 6 mg Q8H PRN Administration Muscle Spasm Trazodone HCl 300 mg 02/20/19 17:32 02/20/19 23:42 Desyrel PO 300 mg QHS [facility] Administration Zolpidem Tartrate 10 mg 02/21/19 22:00 Ambien PO QHS [facility] Nutrition/Malnutrition Assess - Dietary Evaluation Nutrition/Malnutrition Findings: Nutrition Notes Start: 02/21/19 12:29 Freq: Status: Active Protocol: Document 02/21/19 12:29 RM (Rec: 02/21/19 12:50 RM [id number]) Nutrition Notes Need for Assessment generated from: LOS Initial or Follow up Assessment Current Diagnosis Diabetes,Hypertension Other Pertinent Diagnosis Abdominal pain, N/V,GERD, Partial SBO Current Diet Full liquid Labs/Tests Reviewed Pertinent Medications Aleena Height 5 ft 3 in Weight 111.3 kg [place] Body Weight (kg) 52.27 BMI 43.4 Subjective/Other Information Screened for LOS. Clear liquid diet in place. Full liquid ordered for dinner . Pt stated that her appetite is poor. Stated that she does not drink the broth because it made her vomit and she does not like tea. Noted preferences. Noted 5 unopened containers of juice and 2 unopened containers of jello at bedside. Pt stated that she had a container of jello and a few sips of juice today and was able to keep it down. Burn Absent Trauma Absent Minimum of two criteria No #1 Nutrition Diagnosis Inadequate oral intake Etiology decreased appetite, partial SBO As Evidenced by Signs and Symptoms pt on clear liquid diet Is patient on ventilator? No Is Patient Ambulatory and/or Out of Bed Yes REE-([facility]-ambulatory/OOB) [ 2180.269 NUTR.[id number]] Kcal/Kg value to use for calculation 15 Approximate Energy Requirements Using 1670 kcal/Kg Calculation Used for Recommendations Kcal/kg Additional Notes Protein Needs: 66-82g (0.8-1g/ kg adjBW 82 kg) Fluid Needs: 1 m/kcal Nutrition Intervention Change Diet Order: Continue current Add Supplement/Snack (indicate name/kcal Glucerna Chocolate 1 daily /protein ) Provides kCal: 220 Provides Protein (gm) 10 Goal #1 Full liquid diet tolerance Anticipated Discharge Needs: Unable to determine at this time Follow-Up By: 02/23/19 Additional Comments Follow for PO and ONS intakes
[2019-02-21] MEDS ORDERED: KCL 10MEQ/100ML 10 MEQ/100 ML BAG IV SCH (15:00)
--- NOTE | 2019-02-21 16:14 | Discharge Summary ---
Providers - Providers Date of Admission: 02/14/19 22:45 Attending physician: DAYNE WORLEY 02/14/19 21:35 Consult to Physician [CONS] Stat Comment: Dr. Salazar spoke with Dr. Devlin @ [id number] Consulting Provider: GURMEET DEVLIN Physician Instructions: Reason For Exam: small bowel obstruction 02/15/19 14:22 Consult to Physician [CONS] Routine Comment: Consulting Provider: VANI PINEDA Physician Instructions: Reason For Exam: GIB? blood in NG aspirate 02/19/19 14:41 Consult to Physician [CONS] Routine Comment: Consulting Provider: KALEB SAEZ Physician Instructions: Reason For Exam: bradycardia 02/20/19 12:38 psychiatry consult [Consult to Mental Health] [CONS] Routine Reason For Exam: PTSD/multiple psych meds/review and adjust Place consult to:: j2ee consultant/Jennifer Notified:: [place] Phone number called:: [phone] Was contact made?: Yes If yes, spoke with:: Jennifer Time called:: 12:45 02/20/19 12:48 Physical Therapy Evaluation and Treat [CONS] Routine Comment: Reason For Exam: unsteady gait/ h/o fall 02/20/19 12:49 Occupational Therapy Evaluate and Treat [CONS] Routine Comment: Reason For Exam: unsteady gait Primary care physician: MANAGER [employer] Hospitalization Condition: Fair Hospital course: 53-year-old woman who presents to the hospital with abdominal pain distention nausea and vomiting. Has history of section over 20 years ago. Workup is consistent with small bowel obstruction, patient received NG tube suction and nothing by mouth status, evaluate by surgery Serial x-rays show significant improvement, surgery started on clear liquids which patient is tolerating Small bowel obstruction Continue NG tube to suction, general surgery input appreciated, status post mineral oil. SBFT showed partial obstruction with normal transit time of contrast. started clear liquid diet with no carbonated beverages per rec from GS, full liquid for diner GI bleed ruled out, hemoglobin stable, she had dark bilious output from her NG tube, nursing staff and patient reassured Bradycardia Patient takes fentanyl patch and benzodiazepines at home. Therefore they should not be causing bradycardia in this patient of the of her chronic meds. Fentanyl patch has been cut in half, patient still bradycardic. She has severe anxiety does not want to have benzodiazepines help. Echo shows decreased EF, cardiology consulted. Awaiting further recommendations from cardiology, check TSH Chronic systolic CHF echo shows EF of 35%. Patient denies history of heart failure. Cardiology input appreciated, patient likely needs coronary risk stratification in form of possible stress test prior to discharge Hypokalemia Repleted IV Anxiety disorder cont home meds. 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 previous fusion of C3-C4 CT cervical spine; no fracture or subluxation, postoperative changes, degenerative changes Precautions, PT /OT Possible home health versus at discharge when medically stable DVT prophylaxis ; Lovenox Disposition: DC-30 STILL A PATIENT Core Measure Documentation - Palliative Care Palliative Care/ Comfort Measures: Not Applicable - Core Measures Any of the following diagnoses?: none Exam - Constitutional Vitals: Temp Pulse Resp BP Pulse Ox 98.2 F 76 18 131/72 93 02/21/19 11:33 02/21/19 11:33 02/21/19 11:33 02/21/19 11:33 02/21/19 11:33 General appearance: Present: no acute distress, well-nourished - EENT Eyes: Present: PERRL, EOM intact - Neck Neck: Present: supple, normal ROM - Respiratory Respiratory effort: normal Respiratory: bilateral: diminished, negative: rales, rhonchi, wheezing - Cardiovascular Rhythm: regular Heart Sounds: Present: S1 & S2 - Extremities Extremities: no ischemia, No edema - Abdominal General gastrointestinal: Present: soft, non-tender, non-distended, normal bowel sounds - Integumentary Integumentary: Present: clear, warm - Musculoskeletal Musculoskeletal: strength equal bilaterally - Psychiatric Psychiatric: appropriate mood/affect, cooperative - Neurologic Neurologic: moves all extremities Plan Activity: advance as tolerated, fall precautions Diet: clear liquids, other (2 cans of ensure plus [ rec by surgeon]) Special Instructions: physical therapy Additional Instructions: Continue clear liquids/2 cans of Ensure Plus daily as recommended by surgery. Blood sugars in the normal range because of poor oral intake, take glimepiride only when you're able to take normal full diet. Follow private psychiatrist in 1 week. You have multiple medications, advised to check with primary care physician to review the meds and adjust as needed Follow up with: PRIMARY CARE, [Primary Care Provider] - 3-5 Days GURMEET DEVLIN MD [Staff Physician] - 7 Days MAX PEREZ MD [Staff Physician] - 7 Days Prescriptions: Pantoprazole [Protonix TAB] 40 mg PO BID #60 tablet
[2019-02-21 17:37] VITALS: BP 128/62
[2019-02-21] MEDS ORDERED: AMBIEN PO SCH (22:00)
== END 2019-02-21 17:57 | disposition home health service (06) | DRG 389 ==
LOC: ED 13:56 → 3A 22:45
PROVIDERS: ADMIT Internal Medicine; ATTEND Internal Medicine
PROC: 0D9670Z Drainage of Stomach with Drainage Device, Via Natural or Artificial Opening (ICD-10-PCS; principal; 2019-02-15)
DX: K56.600 Partial intestinal obstruction, unspecified as to cause (principal); I50.22 Chronic systolic (congestive) heart failure; Z68.41 Body mass index [BMI] 40.0-44.9, adult; I42.8 Other cardiomyopathies; F41.9 Anxiety disorder, unspecified; E66.01 Morbid (severe) obesity due to excess calories; M19.90 Unspecified osteoarthritis, unspecified site; I11.0 Hypertensive heart disease with heart failure; K21.9 Gastro-esophageal reflux disease without esophagitis; G43.909 Migraine, unspecified, not intractable, without status migrainosus; F17.210 Nicotine dependence, cigarettes, uncomplicated; E11.9 Type 2 diabetes mellitus without complications; E87.6 Hypokalemia; R00.1 Bradycardia, unspecified; G89.4 Chronic pain syndrome; W18.30XA Fall on same level, unspecified, initial encounter; Y93.89 Activity, other specified; Y92.238 Other place in hospital as the place of occurrence of the external cause; Y99.8 Other external cause status; Z90.49 Acquired absence of other specified parts of digestive tract; Z90.710 Acquired absence of both cervix and uterus; Z79.82 Long term (current) use of aspirin
CPT/HCPCS: 36415; 72040; 72125; 74018; 74022; 74177; 74250; 80048; 80053; 81001; 82550; 82553; 82962; 83036; 83690; 83735; 84100; 84132; 84443; 84484; 85025; 87116; 90686; 93306; 99406; G0378; A9270-GY; C9113; J1170; J1650; J1815; J1956; J2060; J2270; J2405; J2765; J3246; J3480; J7030; Q9967